=== PATIENT | male | born 1965 | race Caucasian/White ===

== ENCOUNTER 2023-08-04 13:33 | Emergency (ER) | payer BC, SELFPAY ==
[2023-08-04 13:41] VITALS: BP 128/69
--- NOTE | 2023-08-04 14:36 | ED.GENMED ---
History of Present Illness
General
Chief Complaint: Breathing Problem
Time Seen by Provider: 08/04/23 14:36
Travel History
Have you had any contact with someone who has COVID-19?: No
Do you have any symptoms of coronavirus? Fever > 100 degrees, chills, cough, shortness of breath, sore throat, loss of taste or smell, muscle aches, or headache?: No
History of Present Illness
History of Present Illness:
HPI: Patient presents with increasing shortness of breath and left-sided rib/chest pain. He reportedly broke 3 ribs about 2 weeks ago. This happened after he was pulled by his dog down to the ground. He denies any other injury or concerns. He
has had no fevers. He has had no cough. The patient has tried Advil with only minimal improvement.
EXAM:
GENERAL: Well appearing in no distress
CERVICAL SPINE: No midline c-spine tenderness with excellent AROM
HEAD: No evidence of craniofacial trauma
CHEST: There is moderate tenderness to the left posterolateral chest wall, normal heart sounds
LUNGS: Equal lung sounds, no respiratory distress
ABDOMEN: No abdominal tenderness, no peritoneal signs
EXTREMITIES: Normal active range of motion, no tenderness
NEURO: Excellent strength all extremities, appropriate mental status, normal speech/language
TIME OF INITIAL ENCOUNTER: 2:35 PM: I initially evaluated patient
NUMBER AND COMPLEXITY OF PROBLEMS ADDRESSED AT THE ENCOUNTER
� Chronic conditions affecting care: Recent rib fracture, high blood pressure, diabetes, hyperlipidemia
� Acute Exacerbation and/or Progression of Chronic Illness: Subacute worsening of pain related to rib fracture
� Differential Diagnosis includes: Pneumothorax, persistent pain from rib fracture, poorly healing fractures, pneumonia
AMOUNT AND/OR COMPLEXITY OF DATA TO BE REVIEWED AND ANALYZED
� I performed an independent evaluation of and my interpretation is:
EKG: Sinus 65, left axis deviation, no acute ST abnormality, borderline LVH
CT:
X-rays: I personally reviewed x-ray and agree with radiologist interpretation, there are several more displaced fractures than others but there does appear to be fractures through ribs 3 through 9
Laboratory Studies:
Other: The patient was able to pull 1500 mL on incentive spirometer
� Review of other/old records: The patient had upper endoscopy December 2022
� Clinical information was obtained by an independent historian: I spoke to at bedside
� Prescriptions/Medications Considered but not given:
� Further testing considered but not performed:
RISK OF COMPLICATIONS AND/OR MORBIDITY OR MORTALITY OF PATIENT MANAGEMENT
� Social determinants of health affecting care: Lives at home
� Discussion with other providers:
� Escalation of care including admission/observation vs risk of discharge considered: The patient says he broke 3 ribs 12 days ago now with ongoing pain with some degree of shortness of breath. Breath sounds are equal and I have
relatively low suspicion for pneumothorax. Will repeat imaging. Although this happened 12 days ago, since he does appear rather uncomfortable, will try short course of narcotic analgesia. Chest x-ray suggest the possible of pneumonia however the
patient has no cough and is afebrile. Relatively low suspicion for pneumonia however given the fact that he was using abdominal binder with worsening symptoms, along with multiple rib fractures, will place on antibiotics.
Phy Exam
Physical Exam
Physical Exam:
See HPI
Scores
Heart Failure Risk
Heart Failure Risk Score: Not Applicable
Course
Orders/Labs/Results
Orders:
Orders
08/04/23 13:45
EKG [Electrocardiogram (*1)] Urgent
Reason for Study: Chest Pain
EKG- Treatment ONCE
08/04/23 14:42
Oxycodone/Acetaminophen [Percocet 5/325] 1 tablet PO NOW STA
CR Ribs-left 3 Vw W/pa Chest Urgent
Comment:
Reason For Exam: trauma; '3 rib fx's' 12d ago; worse pain/sob
Incentive Spirometry [Rx Incentive Spirometry] [RESP] Urgent
Frequency: q1h while awake
08/04/23 16:13
Amoxicillin [Amoxil] 1,000 mg PO NOW STA
Azithromycin [Zithromax] 500 mg PO NOW STA
Vital Signs
Initial and Last Documented VS:
Initial Vital Signs
Temp Pulse Resp BP Pulse Ox
97.7 F 68 16 128/69 95
08/04/23 13:41 08/04/23 13:41 08/04/23 13:41 08/04/23 13:41 08/04/23 13:41
Last Documented Vital Signs
Temp Pulse Resp BP Pulse Ox
97.7 F 68 16 128/69 95
08/04/23 13:41 08/04/23 13:41 08/04/23 13:41 08/04/23 13:41 08/04/23 13:41
*Critical Care Note
Total Time (30-74mins, 75-104mins- exclusive of procedures): Not Applicable
ED Attending Note
-
Portions of this chart may have been created with voice recognition software.� Occasional wrong word or��sound alike� substitutions may have occurred due to the inherent limitations of voice recognition software.
Discharge Plan
Departure
Patient Disposition: Home (Routine Discharge)
Date of Disposition: 08/04/23
Time of Disposition: 16:08
Patient with high blood pressure during this ER visit?: Yes
Discharge Problem:
Multiple rib fractures
Instructions: Rib Fracture (DC)
Prescriptions:
New
oxycodone-acetaminophen [Percocet] 5-325 mg tablet
1 - 2 tab PO Q6HPRN PRN (Reason: pain) Qty: 14 0RF
amoxicillin 500 mg tablet
1,000 mg PO TID Qty: 21 0RF
azithromycin [Zithromax] 250 mg tablet
250 mg PO DAILY Qty: 4 0RF
Referrals:
Derrick Sawyer MD [Active] - Follow up in 2-3 days
Ed Dangelo CRNP [Family Provider] -
Activity Restrictions/Additional Instructions:
I have given you the contact information for a local neckties painter�Dr. Sawyer. Please call him for follow-up. The chest x-ray showed fractures of the left third through ninth ribs. There was some questionable airspace disease which
could be seen with pneumonia or irritation to the lung. We can try antibiotics. Your oxygen levels are okay. Return here if worse. Take something like MiraLAX to help constipation if you take Percocet. Do not use a binder as this increases the
risk of pneumonia.
Interventions
Interventions:
*Risk Screen - Suicide Last Done: 08/04/23 13:41
*General Assessment Last Done: 08/04/23 13:41
*Neglect/Abuse Screening Last Done: 08/04/23 13:41
ED- Cardiac Assessment Last Done: 08/04/23 15:16
ED- Pulmonary Assessment Last Done: 08/04/23 15:16
[2023-08-04] MEDS: PERCOCET 5/325 1 TABLET PO (14:57)
[2023-08-04] MEDS: ZITHROMAX 500 MG PO (16:26)
[2023-08-04] MEDS: AMOXIL 1000 MG PO (16:26)
== END 2023-08-04 16:49 | disposition home or self-care (01) ==
LOC: EMR 13:33
PROVIDERS: EMERGENCY PHYSICIAN Emergency Medicine; FAMILY PHYSICIAN Nurse Practitioner Family
DX: S22.42XA Multiple fractures of ribs, left side, initial encounter for closed fracture (principal); W18.30XA Fall on same level, unspecified, initial encounter; I10 Essential (primary) hypertension; K57.92 Diverticulitis of intestine, part unspecified, without perforation or abscess without bleeding; E11.9 Type 2 diabetes mellitus without complications; E78.00 Pure hypercholesterolemia, unspecified
CPT/HCPCS: 99283; 71101; 93005

== ENCOUNTER 2023-08-17 16:12 | Inpatient (IN) | payer BC, SELFPAY ==
[2023-08-17] VITALS (29 sets, daily range): BP systolic 86–131; BP diastolic 51–74; BMI 27.5; BMI 26.8
[2023-08-17 14:25] LABS: Mean Corp Hgb Conc. 32.6 g/dL (33.0-37.0); Mean Corpuscular Hgb 33.9 pg (27.0-31.0); Mean Corpuscular Volume 104.2 fL (80.0-94.0); Mean Platelet Volume 9.8 fL (7.4-10.4); Platelet Count 326 10^3/uL (130-400); Red Blood Cell Count 1.68 10^6/uL (4.70-6.10); Red Cell Dist. Width 16.4 % (11.5-14.5)
[2023-08-17] MEDS: PROTONIX 100 IV ×2 (14:34→23:45)
[2023-08-17 14:36] LABS: INR 1.92; PT 21.8 Sec (11.4-14.6)
--- NOTE | 2023-08-17 14:39 | ED.GENMED ---
Addendum entered and electronically signed by Epi Salvador MD 08/17/23 17:03:
EKG sinus tach at 114. No acute changes.
Original Note:
History of Present Illness
General
Chief Complaint: Bowel Problem
Source: patient and family
Exam Limitations: none
Time Seen by Provider: 08/17/23 14:29
Travel History
Have you had any contact with someone who has COVID-19?: No
Do you have any symptoms of coronavirus? Fever > 100 degrees, chills, cough, shortness of breath, sore throat, loss of taste or smell, muscle aches, or headache?: No
History of Present Illness
History of Present Illness:
Patient started with diarrhea 2 to 3 days ago. May have been dark. Started with vomiting overnight. Multiple episodes of vomiting. Coffee ground. Further black tarry stools. Had a near syncopal episode at home. History of EtOH use. Denies
abdominal pain or other complaints
Past History
Past History
ED Past Medical History: HTN, Hypercholesterolemia, NIDDM and Other (Diverticulitis)
ED Past Surgical History: Appendectomy
Social History
Alcohol: Chronic alcoholic
Personal:
Living: with family
Review of Systems
Review of Systems
All Other Systems: Not applicable
Constitutional: Denies fever
Respiratory: Reports no symptoms
Cardiac: Reports no symptoms
Phy Exam
Physical Exam
Physical Exam:
GENERAL: Alert and oriented. Pale. Hypotensive/tachycardic.
EYE: Orbits normal.
NECK: Supple
CARDIAC: Cardiac and regular no murmur
LUNGS: Clear breath sounds,normal
ABDOMEN: Soft, without focal tenderness or distention. Rectal with maroon stool clearly test positive
NEUROLOGICAL: Alert and oriented , grossly non-focal
SKIN: Warm and dry, pale
MUSCULOSKELETAL: No edema,no deformity.Good color
PSYCH: Normal and appropriate interaction.
Course
Orders/Labs/Results
Orders:
Orders
08/17/23 14:14
EKG [Electrocardiogram (*1)] Urgent
Reason for Study: Vertigo / Dizzy
08/17/23 14:15
EKG- Treatment ONCE
Prothrombin Time Urgent
08/17/23 14:16
Type+Screen Urgent
Complete Blood Count/With Diff Urgent
Comprehensive Metabolic Panel Urgent
Manual Differential Urgent
08/17/23 14:28
Pantoprazole 80 mg/100 ml Nss [Protonix] 80 mg in 100 ml IV NOW
08/17/23 14:29
* Blood Bank Products Urgent
Blood Bank Products: *Packed RBC Leuko(PRBC's)
Quantity: 1
Transfuse Today: Yes
Is product needed for scheduled surgery?: Yes
Reason: Bleeding
Patient will require pre-treatment for transfusion:: No
08/17/23 14:30
CT Abd/pelvis Angio W/wo Iv Urgent
Comment:
Reason For Exam: Severe GI bleed
08/17/23 15:00
* Blood Bank Products Urgent
Blood Bank Products: *Packed RBC Leuko(PRBC's)
Quantity: 2
Transfuse Today: Yes
Reason: Bleeding
08/17/23 15:45
Blood Culture Q30M
LORI Source: Blood/Venous
Specimen Description:
08/17/23 15:51
Admit/Transfer Patient As Directed
Co-Sign Provider:
Level of Care: Inpatient admission
Assign to:: ICU
Physician / Group: Hospitalist
Diagnosis: GI bleed
Reason for Hospitalization: GI bleed
Expected length of stay greater than two midnights?: Yes
ELOS- Estimated Length of Stay in days: 4
I certify the patient meets the requirements for IP care: Yes
08/17/23 15:52
Code Status As Directed
Resuscitation Status: Full Code
08/17/23 16:15
Blood Culture Q30M
LORI Source: Blood/Venous
Specimen Description:
Abnormal Lab Results
08/17/23 08/17/23
14:15 14:16
WBC 32.0 H 10^3/uL
(4.8-10.8)
RBC 1.68 L 10^6/uL
(4.70-6.10)
Hgb 5.7 L* g/dL
(13.0-18.0)
Hct 17.5 L* %
(39.0-52.0)
MCV 104.2 H fL
(80.0-94.0)
MCH 33.9 H pg
(27.0-31.0)
MCHC 32.6 L g/dL
(33.0-37.0)
RDW 16.4 H %
(11.5-14.5)
Abs Neuts (Manual) 25.6 H 10^3/uL
(1.4-6.5)
Band Neutrophils 5 H %
(0-3)
Lymphocytes (Manual) 12 L %
(20-51)
PT 21.8 H Sec
(11.4-14.6)
Sodium 131 L mmol/L
(135-145)
Carbon Dioxide 9 L* mmol/L
(22-30)
BUN 28 H mg/dl
(9-20)
Glucose 267 H mg/dl
(70-99)
Total Bilirubin 1.6 H mg/dl
(0.2-1.3)
Total Protein 5.5 L g/dl
(6.3-8.2)
Albumin 2.6 L g/dl
(3.5-5.0)
Crossmatch IS Only See Detail
08/17/23 14:16
08/17/23 14:16
Vital Signs
Initial and Last Documented VS:
Initial Vital Signs
Temp Pulse Resp BP Pulse Ox
97.8 F 124 16 90/68 100
08/17/23 14:06 08/17/23 14:06 08/17/23 14:06 08/17/23 14:06 08/17/23 14:06
Last Documented Vital Signs
Temp Pulse Resp BP Pulse Ox
97.7 F 111 18 99/59 98
08/17/23 16:12 08/17/23 16:12 08/17/23 16:12 08/17/23 16:12 08/17/23 16:12
MDM/Problems Addressed
Differential Diagnosis Includes:
1510...Severe GI bleed with shock. Blood was ordered immediately. Protonix drip ordered. 2 IVs. GI was consulted immediately. Sent immediately to CT. [place] his BUN and creatinine likely would be stable. Awaiting for this report. 2 more units
of blood ordered after hemoglobin return. Patient's blood pressure is improved and he appears improved with some fluids.
*Radiology
Radiology exam reviewed: radiology read reviewed (Duodenitis and suspected ulceration no evidence for acute bleeding large amount of blood throughout the GI tract. Cirrhosis. Splenomegaly cholelithiasis. Mild pneumonitis right lung base)
*Pulse Oximetry
Patient hypoxic: no
*Critical Care Note
Total Time (30-74mins, 75-104mins- exclusive of procedures): 45
Data Reviewed
Review of Other/Old Records Reveals: Labs and Testing
Update Note
Update Note:
9335... Immediately contacted GI. Updated them on his condition. Hypotensive tachycardic maroon stool clearly testing positive. Patient is pale. Consent for blood. Blood ordered. Protonix drip ordered. Stat CT angio. Previous labs have all
been stable from a renal standpoint.
1615... Currently receiving blood. Significant leukocytosis. Cultures ordered. Will let hospitalist know about possible antibiotic coverage for pneumonitis
ED Attending Note
-
Portions of this chart may have been created with voice recognition software.� Occasional wrong word or��sound alike� substitutions may have occurred due to the inherent limitations of voice recognition software.
Discharge Plan
Departure
Patient Disposition: Admit
Date of Disposition: 08/17/23
Time of Disposition: 15:09
Presentation/result/management discussed w/ accepting MD/DO: Gastroenterology
Discharge Problem:
Severe GI bleed, Cardiovascular shock
Interventions
Interventions:
*Risk Screen - Suicide Last Done: 08/17/23 14:09
*General Assessment Last Done: 08/17/23 14:08
*Neglect/Abuse Screening Last Done: 08/17/23 14:09
*ED COVID-19 Vaccine History Last Done: 08/17/23 14:08
DX-Wtcrqm-Bbjoxvhzwi Assessment Last Done: 08/17/23 14:09
--- NOTE | 2023-08-17 14:40 | PHANOTE ---
med rec note- patient spouse informed me that the patient not good with taking his medication every day, also stated that he might not have taking them in weeks. spouse stated that nothing was taking today besides water.
[2023-08-17 14:46] LABS: ALT (SGPT) 37 U/L (0-50); AST (SGOT) 52 U/L (17-59); Albumin 2.6 g/dl (3.5-5.0); Alkaline Phosphatase 109 U/L (38-126); Blood Urea Nitrogen 28 mg/dl (9-20); Calcium 8.7 mg/dl (8.4-10.2); Carbon Dioxide 9 mmol/L (22-30); Chloride 101 mmol/L (98-107); Estimated Creatinine Clearance 78 ml/min; Glucose 267 mg/dl (70-99); Potassium 3.9 mmol/L (3.5-5.1); Sodium 131 mmol/L (135-145); Total Bilirubin 1.6 mg/dl (0.2-1.3); Total Protein 5.5 g/dl (6.3-8.2); eGFR > 60.00
[2023-08-17 14:59] LABS: Hematocrit 17.5 % (39.0-52.0); Hemoglobin 5.7 g/dL (13.0-18.0)
[2023-08-17 15:26] LABS: Absolute Neutrophils -Man Diff 25.6 10^3/uL (1.4-6.5); Band Neutrophils 5 % (0-3); Lymphocytes 12 % (20-51); Metamyelocytes 1 % (-); Monocytes 6 % (2-9); Myelocytes 1 % (-); Platelets Checked Yes; Segmented Neutrophils 75 % (42-75)
[2023-08-17 15:27] LABS: Anisocytosis 2+; Macrocytosis 2+; Microcytosis 1+; Normal RBC Morphology No; Polychromasia Slight; Total Cells Counted 100
--- NOTE | 2023-08-17 15:36 | HPS.HSE ---
Family Physician
-
Family Physician: Skylar Helton
Chief Complaint
-
Vomiting and diarrhea
History of Present Illness
58 man started with dark diarrhea 2 to 3 days ago. He then Started with vomiting overnight and had Multiple episodes of vomiting, Coffee ground in nature. He also had Further black tarry stools, and a near syncopal episode at home. He has a
History of EtOH use, though he denies current heavy drinking. He Denies abdominal pain or other complaints. He has not had GI bleed before. He has not had alcohol WD before. He had rib fractures recently and has been taking ibuprofen daily. No
pain or distress during my exam.
Medical History
Past Medical History
Past Medical History: Reports Other
Additional Past Medical History:
Essential HTN,
Hypercholesterolemia,
NIDDM
Diverticulitis
Appendectomy
Past Surgical History: Reports Other
Additional Past Surgical History:
See above
Social History
Tobacco: Smoker
Alcohol: Daily
Drug: None
Personal:
Living: With Family
Employment: Employed
Family History
Family History: Not pertinent
Allergies / Home Medications
Allergies reflects when Allergies were last updated in [facility].
Home Medications with original date entered in [facility]
Allergy/Medication List:
Allergies
Allergy/AdvReac Type Severity Reaction Status Date / Time
No Known Allergies Allergy Verified 08/04/23 13:40
Home Medications
dorzolamide 22.3 mg-timolol 6.8 mg/mL eye drops 1 drp BOTH EYES BID 08/17/23
empagliflozin 25 mg tablet (Jardiance) 25 mg PO DAILY 08/17/23
fluoxetine 40 mg capsule (Prozac) 40 mg PO DAILY 08/17/23
omega 9-zrr-pwb-fish oil 1,000 mg (120 mg-180 mg) capsule (Fish Oil) 1 cap PO DAILY 08/17/23
oxycodone-acetaminophen 5 mg-325 mg tablet (Percocet) 1 - 2 tab PO Q6HPRN PRN severe pain 08/17/23
rosuvastatin 10 mg tablet (Crestor) 10 mg PO DAILY 08/17/23
Review of Systems
-
History Source: Patient
A 12 point ROS was completed and negative except as noted: Yes
Physical Exam
Vital Signs
Vital Signs
Temp Pulse Resp BP Pulse Ox
97.8 F 109 14 131/51 100
08/17/23 14:06 08/17/23 15:00 08/17/23 15:00 08/17/23 15:00 08/17/23 15:00
Physical Exam
General: Well Developed, Well Nourished, No Apparent Distress, Comfortable and Other (very pale)
HEENT: NormoCephalic, Moist mucous membranes and No Ptosis
Respiratory: Clear
Cardiac: S1/S2 and Murmur
GI: Soft, Non Tender and Non Distended
Musculoskeletal: No Clubbing, No Cyanosis and No Edema
Skin: Warm and Dry; No Rash
Neuro: Awake, Alert, Oriented and AO x 3
Psych: Calm
Laboratory Results
-
08/17/23 14:16
08/17/23 14:16
Laboratory Results
PT 21.8 Sec (11.4-14.6) H 08/17/23 14:15
INR 1.92 08/17/23 14:15
Total Bilirubin 1.6 mg/dl (0.2-1.3) H 08/17/23 14:16
AST 52 U/L (17-59) 08/17/23 14:16
ALT 37 U/L (0-50) 08/17/23 14:16
Alkaline Phosphatase 109 U/L (38-126) 08/17/23 14:16
Data Reviewed
-
Lab Data: Labs Reviewed by me
Impression/Plan
-
IMPRESSION:
58 man with GI bleed, likely upper. Recent h/o taking NSAIDS. Important findings:
WBC 32.0
H/H 5.7/17.5
MCV 104.2
Na 131
CO2 9
BUN/Creat 28.1
Glucose 267
PLAN:
1. GI bleed, likely upper, likely from NSAIDs
NPO
Protonix gtt
GI consult (called by ED)
ICU admit
2. Acute blood loss anemia (likely from GIB)
Blood Tx (3 units ordered)
Goal is crit > 21
h/h Q6
3. Hyponatremia, likely hypovolemic hyponatremia
IV saline when not getting blood
Recheck in am
4. CO2 of 9
Replete blood and volume
Recheck in am
5. BUN/Creat > 20 (16/06.1), likely combo of UGIB and low volume
Replete volume
Recheck in am
6. WBC of 32.0, stress reaction vs infection
Cultures drawn in ED, hold abx for now
Follow cultures
Recheck in am after blood and volume repleted
7. Glucose of 326. Hold PO dm meds
Insulin as needed
8. Smoking - patch requested
9. ETOH - not currently drinking, and has never had WD. Monitor for now.
10.Essential HTN - ok for now, hold BP meds. Monitor.
VCD for DVTp (avoid heparin)
Full code
--- NOTE | 2023-08-17 18:26 | PTCARENOTE ---
Updated assessment, nursing data base, and unit orientation. Follow up plan of cares, admission orders, and icu follow up plan of cares. Received patient from ED protonix drip infusing, first unit prbc completed and second unit prbc started in Icu.
GI team at bedside to update history and previous/recent scope. Will follow up [facility] plan of cares and orders.
--- NOTE | 2023-08-17 18:39 | CON.GI ---
Consultation
-
Date/Time Consultation Requested: 08/17/23 2:30 pm
Date/Time Consultation Performed: 08/17/23 6pm
Requesting Provider: [place]
Performing Provider: Danny
Reason for Consultation: GI bleed
Medical History
Chief Complaint / HPI
Chief Complaint: GI bleed
History of Present Illness:
This patient is a 58-year-old man who has a history of GERD hypertension, dpw-cyikcob-ofxgrzqlg diabetes and prior history of alcohol abuse. He was seen in our office 1 year ago and had an upper endoscopy at that time for GERD which showed a
submucosal lesion in his duodenum with an ulcer. He was scheduled for an endoscopic ultrasound to evaluate this lesion but did not show up due to work related issues. He never rescheduled. He did have a colonoscopy with some polyps. He states
that he fractured his ribs after having a fall while walking his dog. He was put on multiple NSAIDs as well as OxyContin. He did notice over the last 3 days having black stool and did have some coffee-ground emesis which precipitated him to come
to the emergency room. In the emergency room his hemoglobin was 5.7. He states that he has not had any more melena since this a.m. He has been in alcohol rehab approximately a year ago but did have a few mishaps with alcohol since then. He does
not have a history of cirrhosis that he knew of but imaging that I reviewed did show hepatic cirrhosis and splenomegaly. It did also show this thickened area of the duodenum and there was blood in the GI tract but no active bleeding.
Past Medical History
Past Medical History: HTN, Hypercholesterolemia, NIDDM and Other (diverticulitis)
Past Surgical History: Appendectomy
Social History
Tobacco: Smoker
Alcohol: Chronic Alcoholic (did stop 1 yr ago but has had a few relapses)
Living: With Family
Employment: Employed
Family History
Family History: Reviewed & Not Pertinent
Allergies / Home Medications
Allergy/AdvReac Type Severity Reaction Status Date / Time
No Known Allergies Allergy Verified 08/04/23 13:40
�Medication �Instructions �Recorded
dorzolamide 22.3 mg-timolol 6.8 1 drp BOTH EYES BID 08/17/23
mg/mL eye drops
empagliflozin 25 mg tablet 25 mg PO DAILY 08/17/23
(Jardiance)
fluoxetine 40 mg capsule (Prozac) 40 mg PO DAILY 08/17/23
omega 6-flq-lgx-fish oil 1,000 mg 1 cap PO DAILY 08/17/23
(120 mg-180 mg) capsule (Fish Oil)
oxycodone-acetaminophen 5 mg-325 1 - 2 tab PO Q6HPRN PRN severe pain 08/17/23
mg tablet (Percocet)
rosuvastatin 10 mg tablet (Crestor) 10 mg PO DAILY 08/17/23
Review of Systems
-
All other systems: A 12 pt ROS was Negative except as stated above in HPI
Vital Signs
Temp Pulse Resp BP Pulse Ox
98.7 F 102 18 109/67 98
08/17/23 18:08 08/17/23 18:08 08/17/23 18:08 08/17/23 18:08 08/17/23 18:11
Physical Exam
Exam
General: No Apparent Distress
HEENT: Anicteric
Respiratory: Wheezes (bilateral, worse on right side)
Cardiac: S1/S2
GI: Soft, Non Tender and Normal Bowel Sounds
Neuro: Awake
Psych: Calm
Results
WBC 32.0 10^3/uL (4.8-10.8) H 08/17/23 14:16
Hgb 5.7 g/dL (13.0-18.0) L* 08/17/23 14:16
Hct 17.5 % (39.0-52.0) L* 08/17/23 14:16
MCV 104.2 fL (80.0-94.0) H 08/17/23 14:16
Plt Count 326 10^3/uL (130-400) 08/17/23 14:16
Absolute Neuts (auto) Not Reportable 08/17/23 14:16
PT 21.8 Sec (11.4-14.6) H 08/17/23 14:15
INR 1.92 08/17/23 14:15
Sodium 131 mmol/L (135-145) L 08/17/23 14:16
Potassium 3.9 mmol/L (3.5-5.1) 08/17/23 14:16
Chloride 101 mmol/L (98-107) 08/17/23 14:16
Carbon Dioxide 9 mmol/L (22-30) L* 08/17/23 14:16
BUN 28 mg/dl (9-20) H 08/17/23 14:16
Creatinine 1.1 mg/dL (0.7-1.3) 08/17/23 14:16
Calcium 8.7 mg/dl (8.4-10.2) 08/17/23 14:16
Total Bilirubin 1.6 mg/dl (0.2-1.3) H 08/17/23 14:16
AST 52 U/L (17-59) 08/17/23 14:16
ALT 37 U/L (0-50) 08/17/23 14:16
Alkaline Phosphatase 109 U/L (38-126) 08/17/23 14:16
Assessment / Plan
-
This patient is a 58-year-old male with a history of alcohol abuse, newly diagnosed cirrhosis, submucosal lesion of the small bowel with known DU who is lost to follow-up. He does come with an upper GI bleed after taking NSAIDs for rib injury. I
do think that it is clear by imaging and by history that the area of bleeding is the small bowel lesion which is submucosal and has ulceration. I do not have images but I do worry that it could potentially also be in a variant varix. He currently
is not bleeding but is very under resuscitated. He currently is received just 1 unit of blood and is on his second unit. For now I would do the following;
1. will need 3-4 units of blood, will need to follow hemodynamics to assess this
2. would start octreotide ggt although less likely lesion is a varix
3. PPI ggt
4. follow hgb
5. follow lfts, pt, inr, check hep panel
6. avoid nsaids
7. will need egd but timing to be determined by clinical status taking into consideration lung exam
8. alcohol abstinence
Data Reviewed
-
CT Scan: Image Personally Visualized and interpreted
-
-
Thank you for consultation and allowing me to participate in the patient's care. Please call the manager compensation GI physician during the after hours with any questions or concerns.
[2023-08-17] MEDS: NSS 1000 IV (20:08)
[2023-08-17] MEDS: COSOPT EYE DROPS 1 DROP BOTH EYES (20:09)
[2023-08-17] MEDS: SANDOSTATIN 500.600000000000023 MCG IV (20:09)
[2023-08-17 20:15] LABS: Glucose - Point of Care 146 mg/dl (70-99)
--- NOTE | 2023-08-17 20:49 | PTCARENOTE ---
Pt received at 19:00. 2nd unit PRBCs now complete and 3rd unit started. Pt Ox3, pleasant. SR-Sinus tach, palpable pulses. RA, pulse ox 95%. Breath sounds diminished t/o. Abdomen rounded, tender, hyperactive bowel sounds. Intermittent nausea w/ an
episode of coffee ground emesis--450ml. Voided in urinal, jany urine. Pt at bedside, updated. Safe environment maintained, call [place] within reach.
[2023-08-17] MEDS: ZOFRAN 4 MG IV (22:10)
[2023-08-18] VITALS (59 sets, daily range): BP systolic 68–143; BP diastolic 35–81; BMI 27.0
[2023-08-18 00:07] LABS: Glucose - Point of Care 159 mg/dl (70-99)
[2023-08-18 00:09] LABS: Hematocrit 23.2 % (39.0-52.0)
[2023-08-18 00:10] LABS: Hemoglobin 8.2 g/dL (13.0-18.0)
[2023-08-18 00:19] LABS: INR 1.92; PT 21.8 Sec (11.4-14.6)
[2023-08-18 00:20] LABS: Fibrinogen 208 MG/DL (199-459)
[2023-08-18 00:25] LABS: Blood Urea Nitrogen 34 mg/dl (9-20); Calcium 8.1 mg/dl (8.4-10.2); Carbon Dioxide 21 mmol/L (22-30); Chloride 107 mmol/L (98-107); Estimated Creatinine Clearance 87 ml/min; Glucose 149 mg/dl (70-99); Potassium 4.9 mmol/L (3.5-5.1); Sodium 132 mmol/L (135-145); eGFR > 60.00
--- NOTE | 2023-08-18 01:14 | PTCARENOTE ---
Pt had large loose bm, maroon with clots. Otherwise assessment unchanged. Continues with IVF, octreotide, and protonix. 3rd unit PRBCs completed, hgb went from 5.7 to 8.2. Safe environment maintained, plan of care ongoing.
[2023-08-18] MEDS: CALCIUM GLUCONATE 100 IV (01:27)
[2023-08-18] MEDS: NSS 1000 IV (03:41)
[2023-08-18 04:06] LABS: Hemoglobin 7.6 g/dL (13.0-18.0); Mean Corp Hgb Conc. 34.5 g/dL (33.0-37.0); Mean Corpuscular Hgb 32.5 pg (27.0-31.0); Mean Platelet Volume 9.7 fL (7.4-10.4); Platelet Count 146 10^3/uL (130-400); Red Blood Cell Count 2.34 10^6/uL (4.70-6.10); Red Cell Dist. Width 15.5 % (11.5-14.5); White Blood Cell Count 21.7 10^3/uL (4.8-10.8)
[2023-08-18 04:28] LABS: Blood Urea Nitrogen 36 mg/dl (9-20); Calcium 8.4 mg/dl (8.4-10.2); Carbon Dioxide 23 mmol/L (22-30); Chloride 107 mmol/L (98-107); Estimated Creatinine Clearance 97 ml/min; Glucose 130 mg/dl (70-99); Potassium 4.7 mmol/L (3.5-5.1); Sodium 133 mmol/L (135-145); eGFR > 60.00
[2023-08-18 06:09] LABS: Glucose - Point of Care 152 mg/dl (70-99)
[2023-08-18] MEDS: PROTONIX 100 IV ×2 (07:44→19:24)
[2023-08-18] MEDS: SANDOSTATIN 500.600000000000023 MCG IV ×2 (07:44→19:23)
[2023-08-18 07:45] LABS: Glucose - Point of Care 138 mg/dl (70-99)
[2023-08-18] MEDS: COSOPT EYE DROPS 1 DROP BOTH EYES ×2 (07:45→21:06)
--- NOTE | 2023-08-18 08:31 | W.PN.GI.CBS2 ---
Today's Communication / Plan
-
EGD tomorrow, earlier if indicated
Assessment / Plan
-
This patient is a 58-year-old male with a history of alcohol abuse, newly diagnosed cirrhosis, submucosal lesion of the small bowel with known DU who is lost to follow-up. He does come with an upper GI bleed after taking NSAIDs for rib injury. I
do think that it is clear by imaging and by history that the area of bleeding is the small bowel lesion which is submucosal and has ulceration. I do not have images but I do worry that it could potentially also be in a variant varix. He currently
is not bleeding but may still need another unit of blood as he is still catching up. For now I would do the following;
1. Likely will need another unit of blood
2. continue octreotide ggt although less likely lesion is a varix
3. PPI ggt
4. follow hgb
5. INR stable but elevated
6. avoid nsaids
7. EGD in am, earlier if starts to rebleed
8. alcohol abstinence
9. hep panel pending will add afp
Subjective
Subjective
Date of Service: August 18, 2023
Pt received 3 units of blood. Feels better, no bleeding since admission. No abdominal pain. Breathing is better
Objective
Data Reviewed
Laboratory Data:
Laboratory Results
08/18/23 03:39
Laboratory Results
PT 21.8 Sec (11.4-14.6) H 08/18/23 00:03
INR 1.92 08/18/23 00:03
APTT 37.0 Sec (23.4-35.0) H 08/18/23 00:03
Total Bilirubin 1.6 mg/dl (0.2-1.3) H 08/17/23 14:16
AST 52 U/L (17-59) 08/17/23 14:16
ALT 37 U/L (0-50) 08/17/23 14:16
Alkaline Phosphatase 109 U/L (38-126) 08/17/23 14:16
Vital Signs and I&O:
Vital Signs
Temp Pulse Resp BP Pulse Ox
98.1 F 97 11 94/71 95
08/18/23 07:42 08/17/23 19:45 08/17/23 19:45 08/17/23 19:45 08/17/23 21:34
I&O
08/17/23 08/18/23 08/19/23
06:59 06:59 06:59
Intake Total 3338.7 / 3540.4 201.7 / 201.7
Output Total 1050 / 1050
Balance 2288.7 / 2490.4 201.7 / 201.7
Physical Exam
Physical Exam
GI: Soft, Non Distended and Non Tender
Neuro: Non Focal
--- NOTE | 2023-08-18 08:40 | CON.INTV ---
Consultation
Consultation Request
Date/Time Consultation Requested: 08/17/2023 - 1922
Date/Time Consultation Performed: 08/18/2023 - 834
Requesting Provider: MCKAY Martinez
Performing Provider: Prashanth Ghosh MD
Reason for Consultation: GIB
Medical History
-
Chief Complaint: Black stools/vomiting
History of Present Illness:
58-year-old male with a past medical history of alcohol use disorder, tobacco use disorder, history of diverticulitis, DM type II and hypertension who was BIBEMS for vomiting/diarrhea X 3 days and presyncope. Patient said he had boris blood in the
stool with dark vomitus. He was given Zofran and fentanyl by EMS. Initial vitals showed he was afebrile to 97.8 �F, tachycardic to 124 bpm, breathing at 16 breaths/min, hypotensive to 90/68 and saturating 100% on room air. He was anemic to 5.7
and leukocytosis to 32. Platelets 326. Initial INR 1.92. Hyponatremic to 131 and he was severely acidotic with a serum bicarbonate level of 9. BUN elevated 28 and creatinine normal at 1.1. Glucose 267, total bilirubin 1.6. Albumin 2.6. Blood
cultures were collected. CTA of the abdomen/pelvis with/without contrast showed suspected ulceration of the proximal duodenum with wall thickening and fat stranding. Also showed hepatic cirrhosis with splenomegaly, cholelithiasis with gallbladder
wall thickening and severe aortobiiliac calcified atherosclerosis with diffuse urinary bladder wall thickening and colonic diverticulosis. Patient denies having a GI bleed in the past. He says that he has been drinking alcohol this past weekend
with angelatas. He does drink chronically and understands that he needs to stop. Protonix drip was started in the ER and GI was consulted. Multiple PRBC units were prepared for transfusion, and patient was transferred to the ICU for further
care. Technical Writing Lead/Mgr service is now consulted for additional management/recommendations.
When I saw the patient this morning he was laying in bed in no acute distress. He is currently on an octreotide drip as well as PPI drip. Current vitals are: BP 108/58, heart rate 77, SpO2 96% on room air. He is getting another 1 unit PRBC this
morning due to an Hb that has dropped from 7.6-7.1 today. He has received 3 units prior to this morning. He denies any abdominal pain, although he is thirsty. She denies chest pain, headache, shortness of breath, fevers or chills.
PMHx: Hepatic cirrhosis due to alcohol abuse, hypertension, hypercholesterolemia, DM type II, history diverticulitis, tobacco use disorder
PSHx: Appendectomy
Past Medical History
Past Medical History: Other (Above as per HPI)
Past Surgical History: Other (Above as per HPI)
Social History
Tobacco: Smoker
Alcohol: Chronic Alcoholic
Drug: None
Personal:
Living: With Family
Employment: Employed
Family History
Family History: Reviewed & Not Pertinent
Allergies / Home Medications
Allergies
Allergy/AdvReac Type Severity Reaction Status Date / Time
No Known Allergies Allergy Verified 08/04/23 13:40
Home Medications
�Medication �Instructions �Recorded �Confirmed �Last Taken �Type
dorzolamide 22.3 mg-timolol 6.8 1 drp BOTH EYES BID 08/17/23 08/17/23 Unknown History
mg/mL eye drops
empagliflozin 25 mg tablet 25 mg PO DAILY 08/17/23 08/17/23 Unknown History
(Jardiance)
fluoxetine 40 mg capsule (Prozac) 40 mg PO DAILY 08/17/23 08/17/23 Unknown History
omega 2-udp-xbg-fish oil 1,000 mg 1 cap PO DAILY 08/17/23 08/17/23 Unknown History
(120 mg-180 mg) capsule (Fish Oil)
oxycodone-acetaminophen 5 mg-325 1 - 2 tab PO Q6HPRN PRN severe pain 08/17/23 08/17/23 Unknown History
mg tablet (Percocet)
rosuvastatin 10 mg tablet (Crestor) 10 mg PO DAILY 08/17/23 08/17/23 Unknown History
Review of Systems
-
History Source: Patient
All other systems: Negative unless noted (12 point ROS performed and is negative unless mentioned above.)
Vitals / Labs / Diagnostic Testing
Vital Signs
Temp Pulse Resp BP Pulse Ox
98.1 F 97 11 94/71 95
08/18/23 07:42 08/17/23 19:45 08/17/23 19:45 08/17/23 19:45 08/17/23 21:34
Lab Data
08/18/23 03:39
Laboratory Results
08/17/23 08/18/23
14:15 00:03
PT 21.8 H 21.8 H
INR 1.92 1.92
APTT 37.0 H
Diagnostic Testing:
Physical Exam
-
HEENT: Normocephalic and Anicteric
Cardiovascular: S1/S2 and Peripheral Edema (Negative)
Respiratory: Wheeze (negative), Rales (negative) and Rhonchi (negative)
GI: Soft, Distended, Non Tender and Normal Bowel Sounds
Neurology: Awake, Alert and Oriented
Skin: Warm and Dry
General: Comfortable and Chills (negative)
Assessment
-
Assessment: 58-year-old male with a PMHx of alcohol use disorder, tobacco use disorder, history of diverticulitis, DM type II and hypertension who was BIBEMS for vomiting/diarrhea X 3 days and presyncope. Patient says that he has been having very
dark/black stools for the last few days and almost passed out at home. He did state that he fell several weeks ago after walking his dogs and fell onto the left side of his ribs. He came to the ER that day and on 08/04/2023, rib/chest x-ray showed
displaced lateral left third through ninth rib fractures. He has been taking pain medications with NSAIDs recently. He also has been drinking alcohol. CTA abdomen/pelvis showed hepatic cirrhosis with splenomegaly, and duodenitis with suspected
ulceration at the proximal duodenum with wall thickening and fat stranding. Patient started on PPI drip, and gastroenterology was consulted. Octreotide drip was then started, multiple PRBC transfusions were initiated and he was transferred to the
ICU for admission. Technical Writing Lead/Mgr service now consulted for additional management/recommendations.
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
Impression:
#Upper gastrointestinal hemorrhage due to suspected duodenal PUD with ulceration in setting of recent NSAID use and alcoholic cirrhosis with possible varices
#Acute blood loss anemia
#Coagulopathy with increased INR
#Hyponatremia - this suspected to be due to beer potomania in the setting of cirrhosis with reduced oncotic pressure
#Multifocal CAP with patchy opacities involving RML, lingula and RLL
#Hyperbilirubinemia - likely due to cirrhosis
#Severe atherosclerosis involving aortobiiliac arteries
#Recent fall with mildly displaced lateral left third through ninth rib fractures
#DM type II
#Alcohol abuse
#Tobacco use disorder
Plan:
- Large bore IV x2
- PPI gtt and octreotide gtt
- IVF with LR at 100mL/hr
- GI on board --> patient needs to be transfused to get Hb >7-8g/dL given he is actively bleeding, and he will obtain EGD tomorrow
- Goal INR <1.8 --> I will give vitamin K to help normalize his INR level
- NPO
- Check viral hepatitis panel
- Considering he has cirrhosis with possible upper GI bleed, I will start ceftriaxone. He also potentially aspirated with RLL patchy opacities seen. If leukocytosis worsens or he spikes fever then would add anaerobic coverage. I will cover for
CAP for now and add azithro in addition to the rocephin.
- Follow-up blood cultures, and check urine antigens for Legionella/strep pneumonia, and check sputum culture
- Start thaimine, folate and MVN
- MSAS with prn ativan
- Strict alcohol abstinence going forward; he should speak to [facility] prior to discharge
- Nicotine patch
- Maintain MAP>65
- Goal BG 140-180mg/dL
- He ultimately should obtain repeat CT chest vs CXR in 6-8 weeks to assess for resolution of his PNA
- Replete electrolytes with K>4, Mg>2
- stress ulcer ppx: PPI gtt
- DVT ppx: SCDs for now
Critical care statement: A total of 40 minutes of critical care time was provided for this patient today. This includes management of unstable vital signs, evaluation of the patient at bedside, reviewing the patient's pertinent medical records
including radiographs, microbiology, laboratory evaluations, and discussion with primary team, consultants, pharmacy, nutrition, physical therapy, case management, charge nurse, critical care nursing, and respiratory therapy.
Data:
CTA Abd/Pelvis with/without IV contrast 08-17-2023:
1. Duodenitis and suspected ulceration of the proximal duodenum with wall thickening and inflammatory fat stranding. This likely accounts for the site of gastrointestinal bleeding, although no CTA evidence for active arterial bleeding during this
exam. Large amount of blood products throughout the gastrointestinal tract, as above.
2. Hepatic cirrhosis.
3. Splenomegaly and multiple small low-attenuation splenic lesions, potentially siderotic nodules in the setting of cirrhosis although other infiltrative processes are not excluded.
4. Cholelithiasis.
5. Gallbladder wall thickening is favored to be reactive from the adjacent duodenal inflammation.
6. Severe aortobiiliac calcified atherosclerosis.
7. Diffuse urinary bladder wall thickening for which correlation with a urinalysis is recommended.
8. Colonic diverticulosis.
9. Mild pneumonitis in the right lower lobe.
Ribs with chest XR 08-04-2023:
1. Mildly displaced lateral left third through ninth rib fractures.
2. Patchy bilateral airspace disease suspicious for pneumonia/interstitial pneumonitis.
[2023-08-18] MEDS: LR 1000 IV ×2 (08:59→19:23)
[2023-08-18] MEDS: NSS IV (09:01)
[2023-08-18 09:18] LABS: Hemoglobin 7.1 g/dL (13.0-18.0)
--- NOTE | 2023-08-18 09:36 | CM ---
Addendum entered by Vadim Esposito 08/18/23 14:17:
CM consulted to assist pt with substance abusee resources and treatment options. Pt expressed his agreement to meet with [facility]. A referral to [facility] made, spoke to [facility]S Osmin and he will meet with pt today to provide with substance abuse
recourses and to discuss alcohol related treatment program options.
Original Note:
CM following re: discharge planning.
Reviewed pt's chart, met with pt.
Pt is a 58 year old male, admitted with primary dx of upper GI bleed.
Pt reports he lives with spouse in a condo, no steps, has 2 supportive daughters. 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 pt reports he uses a cane. Pt expressed his desire to return back home at discharge.
PCP: Juliann Dangelo
Pharmacy: [facility] in [facility].
D/C plan: home with anticipated no needs. Family to transport at discharge.
CM will follow with discharge plan updates as hospitalization progresses
[2023-08-18 09:38] LABS: Hematocrit 20.5 % (39.0-52.0)
--- NOTE | 2023-08-18 09:51 | PTCARENOTE ---
report received, assessments per work list. patient denies pain, alert and oriented. mildly anxious. bed alarm maintained due to fall risk. lungs clear. generalized anasarca. abdomen soft. voiding in urinal. call menchaca in reach. labs sent. hgb
reported to hospitalist via tiger text
--- NOTE | 2023-08-18 09:58 | PTCARENOTE ---
Addendum entered by Daisy Miller RN 08/18/23 10:12:
prior shift vitals captured, unable to verify accuracy
Original Note:
patient had 100ml liquid burgundy black stool, hospitalist, GI updated. orders pending
--- NOTE | 2023-08-18 11:11 | PTCARENOTE ---
blood pressure 78 systolic, unit prbc initiated. GI, hospitalist at bedside, updated
[2023-08-18 11:40] LABS: Glycohemoglobin (HgbA1c) 5.2 % (4.0-5.6)
[2023-08-18 12:04] LABS: Glucose - Point of Care 152 mg/dl (70-99)
[2023-08-18] MEDS: NOVOLOG FLEXPEN-LOW RESISTANCE 1 UNITS SC (12:42)
--- NOTE | 2023-08-18 12:45 | PTCARENOTE ---
reassessed. unit PRBC transfusing without signs reaction.
--- NOTE | 2023-08-18 12:47 | W.PN.HOSP.TC ---
Today's Communication/Plan
-
Transfused 2 units of PRBC
Switch to LR
Monitor blood pressure
Trend H&H
Endoscopy tomorrow tentative or sooner if needed
Assessment / Plan
Assessment / Plan
GI bleed, likely upper, likely from NSAIDs
Continue PPI drip
Starting octreotide drip
Continue with IV fluids
2 large-bore IVs at all times
Gastroenterology consult
Plan for endoscopy tomorrow or earlier if needed
Service electrical test engineer consulted
Start pressors if with hypotension
Plan H&H
CT abd/pelvis with Duodenitis and suspected ulceration of the proximal duodenum with wall thickening and inflammatory fat stranding. This likely accounts for the site of gastrointestinal bleeding, although no CTA evidence for active arterial
bleeding during this exam. Large amount of blood products throughout the gastrointestinal tract, as above.
Acute blood loss anemia (likely from GIB)
Hemoglobin 7.1' additional points of PRBC
Repeat H&H after transfusion
Transfuse aggressively
Hyponatremia, likely hypovolemic hyponatremia
Sodium improving
Continue to trend
Metabolic acidosis
Improving
Stop normal saline switch to LR
Elevated creatinine with BUN likely secondary to GI.
Improving
Leukocytosis likely stress
Trending down
Afebrile
Follow-up on the blood cultures
Diabetes mellitus
Hold p.o. meds
Sliding scale
Accu-Cheks
Smoking - patch requested
ETOH/hepatic cirrhosis
CT abdomen pelvis with cirrhosis. Splenomegaly noted.
Check coags.
Hepatitis panel pending
Essential HTN - ok for now, hold BP meds. Monitor.
DVT prophylaxis SCDs in the setting of GI bleed
Discussed with electrical test engineer
Total Critical Care Time_ 35 _ minutes. I was immediately available to the patient and staff. I personally examined, reviewed labs, diagnostic images/reports, interpretations, treatment plans, discussed patient care with other providers and
family or caregivers (if patient is unable to make decisions), entered orders as appropriate and documented the medical record.
Anticipated Discharge: > 48 hours
Subjective/Interval History
-
Date of Service: August 18, 2023
Denies any abdominal pain or cramps
Objective Data
-
Labs:
Laboratory Results
08/18/23 08/18/23 08/18/23
03:39 08:57 15:00
WBC 21.7 H
Hgb 7.6 L 7.1 L Cancelled
Hct 22.0 L 20.5 L* Cancelled
Plt Count 146 D
Sodium 133 L
Potassium 4.7
Chloride 107
Carbon Dioxide 23
BUN 36 H
Creatinine 0.9
Glucose 130 H
Calcium 8.4
Vital Signs:
Vital Signs
Temp Pulse Resp BP Pulse Ox
98.6 F 78 14 100/46 94
08/18/23 11:24 08/18/23 11:01 08/18/23 11:01 08/18/23 11:01 08/18/23 11:01
I&O
08/17/23 08/18/23 08/19/23
06:59 06:59 06:59
Intake Total 3338.7 / 3540.4 756.8 / 756.8
Output Total 1050 / 1050 600 / 600
Balance 2288.7 / 2490.4 156.8 / 156.8
Physical Exam
-
General: Well Developed, No Apparent Distress and Other (pale)
HEENT: Normocephalic, Atraumatic and Moist Mucous Membranes
Respiratory: Clear to Auscultation
Cardiac: Regular Rhythm and S1/S2; Negative Murmur, Rub or Gallop
GI: Soft, Nontender, Nondistended and Normal Bowel Sounds; Negative Organomegaly
Rectal: Deferred by Provider
Musculoskeletal: No Clubbing, No Cyanosis and No Edema
Skin: Negative Rash
Neuro: Awake, AO x 3 and Nonfocal/Grossly Intact
Psych: Calm
--- NOTE | 2023-08-18 13:18 | PTCARENOTE ---
repeated hypotension. fluids resumed, second unit PRBC initiated
--- NOTE | 2023-08-18 14:17 | PTCARENOTE ---
patient transfer to GI lab
[2023-08-18 14:58] LABS: Glucose - Point of Care 158 mg/dl (70-99)
--- NOTE | 2023-08-18 15:15 | W.PN.UPDATE ---
Update Note
Progress Note Update
EGD:
2 large ulcers one more an excavating ulcer in the site of previous of 'submucosal lesion with erosion'. Very deep. not bleeding now, epinephrine to tamponade around but too deep for any other safe treatment
1. transfuse to keep up
2. IV PPI ggt
3. continue octreotide for now
4. follow hgb
5. if major rebleed (would expect some oozing) then will need IR vs surgery
spoke to braulio as well.
[2023-08-18] MEDS: FLUSH (NSS) 1 FLUSH IV ×2 (15:29→15:40)
[2023-08-18] MEDS: STERILE WATER FOR INJECTION 20 ML IV (15:29)
[2023-08-18] MEDS: NICODERM TRANSDERMAL 7 MG TRANSDERM (15:30)
[2023-08-18] MEDS: FOLVITE PO (15:30)
[2023-08-18] MEDS: ROCEPHIN 1000 MG IV (15:30)
[2023-08-18] MEDS: ZITHROMAX INFUSION 250 IV (15:37)
[2023-08-18] MEDS: AQUAMEPHYTON 50.5 MG IV (15:40)
--- NOTE | 2023-08-18 15:48 | PTCARENOTE ---
recieved from GI lab. drowsy, lungs with coarse breath sounds bilaterally. second unit PRBC completed without signs reaction
[2023-08-18 16:20] LABS: Hematocrit 27.5 % (39.0-52.0)
[2023-08-18 16:21] LABS: Hemoglobin 9.6 g/dL (13.0-18.0)
[2023-08-18] MEDS: FOLVITE 50.2000000000000028 MG IV (16:31)
--- NOTE | 2023-08-18 16:51 | PTCARENOTE ---
hospitalist, GI updated with repeat HH. no new orders at this time. patient remains drowsy, bed alarm maintained. informed patient when he needs to void alert staff as a specimen is needed. family at bedside
[2023-08-18 17:20] LABS: Glucose - Point of Care 141 mg/dl (70-99)
[2023-08-18] MEDS: NOVOLOG FLEXPEN-LOW RESISTANCE SC (17:34)
[2023-08-18 18:28] LABS: Urine Albumin Negative (Neg - Trace); Urine Bilirubin Negative (Negative); Urine Character Clear (Clear); Urine Color Yellow; Urine Glucose Negative (Negative); Urine Ketone Negative (Negative); Urine Leukocyte Negative (Negative); Urine Nitrite Negative (Negative); Urine Occult Blood Negative (Negative); Urine Specific Gravity 1.015 (<1.030); Urine Urobilinogen Negative (Neg - 1+)
--- NOTE | 2023-08-18 20:40 | PTCARENOTE ---
Pt received at 19:00. Ox2, drowsy but easily arousable, forgetful but easily reoriented. SR, palpable pulses. RA, pulse ox 95%. Breath sounds clear/diminished at the bases. Abdomen round, nontender, denies nausea--no vomiting or BM at this time.
Safe environment maintained, call menchaca within reach, plan of care ongoing.
[2023-08-18] MEDS: THIAMINE INJECTION 200 MG IV (21:06)
[2023-08-18 22:14] LABS: Hematocrit 24.8 % (39.0-52.0)
[2023-08-18] MEDS: MELATONIN 10 MG PO (22:28)
[2023-08-19] VITALS (28 sets, daily range): BP systolic 96–139; BP diastolic 51–96; BMI 27.4
[2023-08-19 00:38] LABS: Glucose - Point of Care 141 mg/dl (70-99)
[2023-08-19] MEDS: NOVOLOG FLEXPEN-LOW RESISTANCE SC ×2 (00:41→05:15)
[2023-08-19 04:52] LABS: % Basophils 0.6 % (0-2); % Eosinophils 0.2 % (0-6); % Immature Granulocytes 1.5 % (0-0.5); % Lymphocytes 18.4 % (20.5-51.1); % Neutrophils 71.3 % (42.2-75.2); Absolute Basophils 0.1 10^3/uL (0-0.2); Absolute Immature Granulocytes 0.2 10^3/uL (0-0.05); Absolute Monocytes 0.9 10^3/uL (0.1-0.6); Absolute Neutrophils 7.6 10^3/uL (1.4-6.5); Hematocrit 24.4 % (39.0-52.0); Hemoglobin 8.6 g/dL (13.0-18.0); Mean Corp Hgb Conc. 35.2 g/dL (33.0-37.0); Mean Corpuscular Volume 93.5 fL (80.0-94.0); Nucleated Red Blood Cells % 0 % (-); Platelet Count 103 10^3/uL (130-400); Red Blood Cell Count 2.61 10^6/uL (4.70-6.10); Red Cell Dist. Width 16.8 % (11.5-14.5); White Blood Cell Count 10.7 10^3/uL (4.8-10.8)
[2023-08-19 04:54] LABS: INR 1.56; PT 18.5 Sec (11.4-14.6)
[2023-08-19 05:06] LABS: ALT (SGPT) 51 U/L (0-50); AST (SGOT) 94 U/L (17-59); Albumin 2.1 g/dl (3.5-5.0); Alkaline Phosphatase 88 U/L (38-126); Blood Urea Nitrogen 24 mg/dl (9-20); Carbon Dioxide 23 mmol/L (22-30); Chloride 105 mmol/L (98-107); Direct Bilirubin 0.6 mg/dl (0.0-0.4); Estimated Creatinine Clearance 97 ml/min; GGTP 39 U/L (15-73); Glucose 143 mg/dl (70-99); Magnesium 1.6 mg/dl (1.6-2.3); Phosphorus 3.2 mg/dl (2.5-4.5); Potassium 3.5 mmol/L (3.5-5.1); Sodium 129 mmol/L (135-145); Total Bilirubin 2.1 mg/dl (0.2-1.3); Total Protein 4.7 g/dl (6.3-8.2); eGFR > 60.00
[2023-08-19] MEDS: LR 1000 IV (05:28)
[2023-08-19] MEDS: PROTONIX 100 IV ×3 (05:29→23:31)
[2023-08-19] MEDS: MAGNESIUM SULFATE 102 GRAMS IV (05:34)
[2023-08-19] MEDS: KCL 160 MEQ IV (05:34)
[2023-08-19 06:05] LABS: Glucose - Point of Care 125 mg/dl (70-99)
--- NOTE | 2023-08-19 07:15 | W.PN.INTV ---
Today's Communication / Plan
Recommendations
Doing well at this time, stable/no events
Can stop abx at this point
Diet advanced, stop IVFs
Encouraged OOB/PT/OT
Can transfer to tele at this time, we will sign off upon transfer
Assessment
-
58-year-old male with a PMHx of alcohol use disorder, tobacco use disorder, history of diverticulitis, DM type II and hypertension who was BIBEMS for vomiting/diarrhea X 3 days and presyncope. Patient says that he has been having very dark/black
stools for the last few days and almost passed out at home. He did state that he fell several weeks ago after walking his dogs and fell onto the left side of his ribs. He came to the ER that day and on 08/04/2023, rib/chest x-ray showed displaced
lateral left third through ninth rib fractures. He has been taking pain medications with NSAIDs recently. He also has been drinking alcohol. CTA abdomen/pelvis showed hepatic cirrhosis with splenomegaly, and duodenitis with suspected ulceration
at the proximal duodenum with wall thickening and fat stranding. Patient started on PPI drip, and gastroenterology was consulted. Octreotide drip was then started, multiple PRBC transfusions were initiated and he was transferred to the ICU for
admission. Pc Maintenance Technician service now consulted for additional management/recommendations.
Impression:
#Upper gastrointestinal hemorrhage due to suspected duodenal PUD with ulceration in setting of recent NSAID use and alcoholic cirrhosis with possible varices
#Acute blood loss anemia
#Coagulopathy with increased INR
#Hyponatremia - this suspected to be due to beer potomania in the setting of cirrhosis with reduced oncotic pressure
#Multifocal CAP with patchy opacities involving RML, lingula and RLL
#Hyperbilirubinemia - likely due to cirrhosis
#Severe atherosclerosis involving aortobiiliac arteries
#Recent fall with mildly displaced lateral left third through ninth rib fractures
#DM type II
#Alcohol abuse
#Tobacco use disorder
Chronic medical conditions [employer] [facility]:
Hepatic cirrhosis due to alcohol abuse
Hypertension
Hypercholesterolemia
DM type II
History diverticulitis
Tobacco use disorder
Plan:
High risk for ETOH w/d
Continue thiamine, folate and MVN
MSAS with prn ativan
Strict alcohol abstinence going forward; he should speak to '[facility]' prior to discharge
Nicotine patch
Seizure precautions
GIB
- Large bore IV x2
- PPI gtt and octreotide gtt--wean to off
- IVF with LR at 100mL/hr--stop IVFs when diet advanced
- GI on board --> patient needs to be transfused to get Hb >7-8g/dL given he is actively bleeding, and he will obtain EGD tomorrow
- Goal INR <1.8 --> I will give vitamin K to help normalize his INR level
- Advance diet per team
- Check viral hepatitis panel
CXR reviewed: no clear defined opacities
No fever/WBC could be elevated in setting of GIB
Culture to date negative
Currently on CTX for prophylaxis and resp coverage--i see no indication to continue
Can likely stop if no further culture results demonstrate infection
Follow temp curve/WBC
Hemodynamically stable off pressors
Maintain MAP>65
Prior ECHO in past with stable function
Resume statin
Goal BG 140-180mg/dL
Renal function adequate
Creat stable
Follow I/Os, UO
Replete electrolytes with K>4, Mg>2
Transfuse as needed
DVT ppx: SCDs for now
Diagnostic Data
CTA Abd/Pelvis with/without IV contrast 08-17-2023:
1. Duodenitis and suspected ulceration of the proximal duodenum with wall thickening and inflammatory fat stranding. This likely accounts for the site of gastrointestinal bleeding, although no CTA evidence for active arterial bleeding during this
exam. Large amount of blood products throughout the gastrointestinal tract, as above.
2. Hepatic cirrhosis.
3. Splenomegaly and multiple small low-attenuation splenic lesions, potentially siderotic nodules in the setting of cirrhosis although other infiltrative processes are not excluded.
4. Cholelithiasis.
5. Gallbladder wall thickening is favored to be reactive from the adjacent duodenal inflammation.
6. Severe aortobiiliac calcified atherosclerosis.
7. Diffuse urinary bladder wall thickening for which correlation with a urinalysis is recommended.
8. Colonic diverticulosis.
9. Mild pneumonitis in the right lower lobe.
Ribs with chest XR 08-04-2023: Mildly displaced lateral left third through ninth rib fractures. Patchy bilateral airspace disease suspicious for pneumonia/interstitial pneumonitis.
ECHO 09/05/20: Normal left ventricular size, wall thickness and systolic function. No regional wall motion abnormalities are seen. Estimated ejection fraction is 55- 60%. Normal diastolic function. Since echocardiogram October 2015, there is no
significant change.
-----
Critical Care time 35 mins -- The patient is admitted for acute critical illness for the treatment of vital organ failure and/or prevention of further life-threatening conditions. Total care includes time spent in review of history, physical exam,
medications, hemodynamic/ventilator parameters, laboratory data, imaging and discussion with house staff, pharmacy, respiratory therapy, electrical systems engineer, and nursing.
Subjective Dataa
Subjective Data
Date of Service:
Date of Service: August 19, 2023
Chief Complaint: Pc Maintenance Technician Follow Up
Subjective:
no acute events on
remains stable on room air
pain at site of rib fracture but no abd pain
Objective Data
Data Reviewed
Vital Signs / I&O / Oxygen:
Vital Signs
Temp Pulse Resp BP Pulse Ox
97.9 F 62 15 120/67 96
08/19/23 03:08 08/19/23 03:45 08/19/23 03:45 08/19/23 03:30 08/19/23 03:45
Intake and Output
08/18/23 08/19/23 08/20/23
06:59 06:59 06:59
Intake Total 3338.7 / 3540.4 4882.3 / 4882.3
Output Total 1050 / 1050 2750 / 2750
Balance 2288.7 / 2490.4 2132.3 / 2132.3
SaO2 96
Physical Exam
General: Comfortable, Pain (at rib fracture area) and Other (NAD)
HEENT: Normocephalic, Anicteric and Moist Mucous Membranes
Cardiovascular: S1-S2 and Regular Rhythm
Respiratory: Clear and Non-Labored Respirations
GI: Soft, Non Distended and Non Tender
Neurology: Awake, Alert, Oriented, AO x 3 and No Motor Deficits
Skin: Warm, Dry and Good Color
Labs/Micro/Reports
Lab Data
08/19/23 04:24
Laboratory Results
08/19/23
04:23
PT 18.5 H
INR 1.56
Microbiology
08/17/23 16:44 Blood/Venous Blood Culture - Preliminary
No Growth in 24 hours- Final report to follow
08/17/23 16:44 Blood/Venous Blood Culture - Preliminary
No Growth in 24 hours- Final report to follow
[2023-08-19] MEDS: ZITHROMAX 250 MG PO (07:44)
[2023-08-19] MEDS: NICODERM TRANSDERMAL TRANSDERM (07:45)
[2023-08-19] MEDS: FOLVITE 1 MG PO (07:45)
[2023-08-19] MEDS: THIAMINE INJECTION 200 MG IV ×2 (07:45→19:56)
[2023-08-19] MEDS: COSOPT EYE DROPS 1 DROP BOTH EYES ×2 (07:45→19:56)
[2023-08-19] MEDS: THERAGRAN 1 TABLET PO (07:45)
[2023-08-19] MEDS: SANDOSTATIN 500.600000000000023 MCG IV (07:47)
--- NOTE | 2023-08-19 08:44 | W.PN.GI.CBS2 ---
Today's Communication / Plan
-
continue PPI ggt
d/c octeotide
advance diet
Assessment / Plan
-
This patient is a 58-year-old male with a history of alcohol abuse, newly diagnosed cirrhosis, submucosal lesion of the small bowel with known DU who is lost to follow-up. He does come with an upper GI bleed after taking NSAIDs for rib injury.
EGD on 08/18/23 showed 2 large DUs one that was deep and created a cavity. Epi injection only, no vessel to treat.
1. continue PPI ggt
2. follow hgb
3. avoid nsaids
4. d/c octreotide ggt.
5. advance diet
6. hep panel pending will add afp, heterozygous H63D
7. will need outpatient f/u for repeat egd and discussion of alcohol abstinence and liver disease
will follow
Subjective
Subjective
Date of Service: August 19, 2023
Pt with no bleeding, feels much better.
Objective
Data Reviewed
Laboratory Data:
Laboratory Results
08/19/23 04:24
Laboratory Results
PT 18.5 Sec (11.4-14.6) H 08/19/23 04:23
INR 1.56 08/19/23 04:23
APTT 37.0 Sec (23.4-35.0) H 08/18/23 00:03
Phosphorus 3.2 mg/dl (2.5-4.5) 08/19/23 04:24
Magnesium 1.6 mg/dl (1.6-2.3) 08/19/23 04:24
Total Bilirubin 2.1 mg/dl (0.2-1.3) H 08/19/23 04:24
AST 94 U/L (17-59) H 08/19/23 04:24
ALT 51 U/L (0-50) H 08/19/23 04:24
Alkaline Phosphatase 88 U/L (38-126) 08/19/23 04:24
Vital Signs and I&O:
Vital Signs
Temp Pulse Resp BP Pulse Ox
98.2 F 65 12 122/67 96
08/19/23 07:52 08/19/23 08:15 08/19/23 08:15 08/19/23 08:00 08/19/23 08:15
I&O
08/18/23 08/19/23 08/20/23
06:59 06:59 06:59
Intake Total 3338.7 / 3540.4 5034.0 / 5185.7 753.4 / 753.4
Output Total 1050 / 1050 2750 / 3250 500 / 500
Balance 2288.7 / 2490.4 2284.0 / 1935.7 253.4 / 253.4
Physical Exam
Physical Exam
GI: Soft and Non Tender
--- NOTE | 2023-08-19 09:43 | PTCARENOTE ---
bedside echo being completed. will assist patient OOB when test complete.
--- NOTE | 2023-08-19 11:00 | CM ---
Addendum entered by Danii Diaz 08/19/23 14:37:
SIDNEY met with patient and provided outpatient supports/resources and their card. Patient was not interested in inpatient treatment at this time. Patient reported to [facility] that he had been at inpatient treatment at the [facility] in [place]
last year.
Original Note:
Patient seen at bedside. Patient states that he has no needs and plan is for discharge home at this time. CM will confirm SIDNEY met with patient as requested 08/15. CM will continue to follow for discharge planning needs.
Plan; home with no needs; watch for SIDNEY
[2023-08-19] MEDS: FLUSH (NSS) IV ×2 (11:07→12:24)
[2023-08-19] MEDS: STERILE WATER FOR INJECTION IV (11:08)
--- NOTE | 2023-08-19 11:08 | PTCARENOTE ---
Sandostatin gtt discontinued. Offered to get patient OOB to chair. Patient stated he would like to sleep more. Toothbrush and toothpaste at bedside, patient is a self. Has been downgraded to telemetry.
[2023-08-19 11:59] LABS: Glucose - Point of Care 153 mg/dl (70-99)
[2023-08-19] MEDS: NOVOLOG FLEXPEN-LOW RESISTANCE 1 UNITS SC ×2 (12:23→17:22)
[2023-08-19 13:04] LABS: Hematocrit 25.9 % (39.0-52.0); Hemoglobin 9.2 g/dL (13.0-18.0)
--- NOTE | 2023-08-19 13:07 | W.PN.HOSP.TC ---
Today's Communication/Plan
-
Diet/PPI per GI
Stop further antibiotics
transfer to tele
Assessment / Plan
Assessment / Plan
CT abd/pelvis
Duodenitis and suspected ulceration of the proximal duodenum with wall thickening and inflammatory fat stranding. This likely accounts for the site of gastrointestinal bleeding, although no CTA evidence for active arterial bleeding during this exam.
Large amount of blood products throughout the gastrointestinal tract, as above.
EGD on 08/17
- Grade I esophageal varices.
- Erosive gastropathy with no stigmata of recent bleeding.
- Duodenal ulcers with pigmented material. Injected.
- No specimens collected.
1. Peptic ulcer disease
Esophageal varices
Acute blood loss anemia
-S/p EGD on 08/17 with findings as above
-Required 5 unit of blood transfusion this admission
-GI cleared patient diet to be advanced
-Octreotide to be stopped
-Continue PPI drip
-Continue follow-up hemoglobin with further transfusion as needed for hemoglobin less than 7
-Patient to avoid any future NSAID use moving forward
2. Acute hyponatremia
-euvolemic on exam .
-ADH excess with bleed stated and cirrhosis likely contributing
-Check urine electrolytes
-Will start limiting fluid intake once on regular diet
3. Cirrhosis presumed alcohol use related
Associated thrombocytopenia/coagulopathy/elevated total bilirubin/transaminitis
-Hepatitis panel sent
-Will require follow-up with GI in office periodically
4. Metabolic acidosis
- resolved
5. Reactive leukocytosis
-normalized, no signs of ongoing infection.
-On empiric Rocephin and azithromycin, will discontinue
6. Type II DM
-Maintain insulin sliding scale
7. Tobacco use disorder
-On nicotine patch
8. Essential HTN
-Controlled off of blood pressure medication continue monitoring
DVT prophylaxis SCDs in the setting of GI bleed
Discussed with Gastroenterology
Anticipated Discharge: 24 - 48 hours
Subjective/Interval History
-
Date of Service: August 19, 2023
No reported bleeding overnight
Objective Data
-
Labs:
Laboratory Results
08/19/23 08/19/23 08/19/23
04:23 04:24 12:49
WBC 10.7
Hgb 8.6 L Pending
Hct 24.4 L Pending
Plt Count 103 L D
PT 18.5 H
INR 1.56
Sodium 129 L
Potassium 3.5 D
Chloride 105
Carbon Dioxide 23
BUN 24 H
Creatinine 0.9
Glucose 143 H
Calcium 8.0 L
Total Bilirubin 2.1 H
AST 94 H
ALT 51 H
Alkaline Phosphatase 88
Vital Signs:
Vital Signs
Temp Pulse Resp BP Pulse Ox
97.5 F 60 16 121/67 94
08/19/23 10:40 08/19/23 11:45 08/19/23 11:45 08/19/23 11:30 08/19/23 11:45
I&O
08/18/23 08/19/23 08/20/23
06:59 06:59 06:59
Intake Total 3338.7 / 3540.4 5034.0 / 5185.7 1125.1 / 1125.1
Output Total 1050 / 1050 2750 / 3250 1100 / 1100
Balance 2288.7 / 2490.4 2284.0 / 1935.7 25.1 / 25.1
Review of Systems
-
Respiratory: Reports No Symptoms
Cardiac: Reports No Symptoms
Abdomen/GI: Reports No Symptoms
Physical Exam
-
General: Other (pale)
HEENT: Negative Oxygen
Respiratory: Clear to Auscultation
Cardiac: Regular Rhythm and S1/S2; Negative Murmur or Rub
GI: Soft, Nontender and Normal Bowel Sounds
Musculoskeletal: No Edema
Skin: Negative Rash
Neuro: Awake, Alert, Oriented, AO x 3 and Nonfocal/Grossly Intact
Psych: Calm
--- NOTE | 2023-08-19 13:33 | PTCARENOTE ---
Patient OOB to chair, tele pack applied, assisted patient with wearing pants. MARIELOSAREs in to speak with patient. He remains completely oriented and able to make needs known.
--- NOTE | 2023-08-19 15:08 | PTOTSP ---
Therapist spoke with the patient, who reports he has remained independent with mobility and there have been no changes in his functioning since being here. Patient denied the need for PT consult and agreeable to PT signing off; patient is aware our
services our available if needs arise. PT will sign off. Discussed with RN.
[2023-08-19 16:58] LABS: Glucose - Point of Care 198 mg/dl (70-99)
[2023-08-19 18:54] LABS: Osmolality Urine 559 mOsm/kg (300-900)
--- NOTE | 2023-08-19 19:00 | PTCARENOTE ---
received patient from previous RN. pt AAOX3. pt ambulating in halls independently. SR on telemetry heart rate in 60s. pulses palpable. no edema. pt on room air, sat 99%. lung sounds diminished in bases. occasional cough. voiding in bathroom.
tolerating diet. denies nausea. active bowel sounds. denies bowel movement today. Protonix gtt infusing. see worklist for full nursing assessment and interventions.
[2023-08-19 20:09] LABS: Urine Sodium 99 mmol/L (30-90)
[2023-08-19 21:50] LABS: Glucose - Point of Care 191 mg/dl (70-99)
[2023-08-19] MEDS: MELATONIN 5 MG PO (23:31)
[2023-08-20 07:02] LABS: Hepatitis B Surface Antigen Negative (Negative)
[2023-08-20 07:20] LABS: Hepatitis B Core Ab, Total Negative (Negative); Hepatitis C Antibody Negative (Negative)
[2023-08-20 07:30] VITALS: BP 115/50
[2023-08-20 07:33] LABS: Glucose - Point of Care 146 mg/dl (70-99)
[2023-08-20 07:37] LABS: Hematocrit 27.8 % (39.0-52.0); Hemoglobin 9.9 g/dL (13.0-18.0); Mean Corp Hgb Conc. 35.6 g/dL (33.0-37.0); Mean Corpuscular Hgb 33.2 pg (27.0-31.0); Mean Corpuscular Volume 93.3 fL (80.0-94.0); Platelet Count 123 10^3/uL (130-400); Red Blood Cell Count 2.98 10^6/uL (4.70-6.10); Red Cell Dist. Width 17.4 % (11.5-14.5); White Blood Cell Count 9.7 10^3/uL (4.8-10.8)
[2023-08-20] MEDS: NOVOLOG FLEXPEN-LOW RESISTANCE SC ×3 (07:37→17:03)
[2023-08-20] MEDS: NICODERM TRANSDERMAL 7 MG TRANSDERM (07:39)
[2023-08-20] MEDS: FOLVITE 1 MG PO (07:39)
[2023-08-20] MEDS: THIAMINE INJECTION 200 MG IV ×2 (07:40→20:54)
[2023-08-20] MEDS: COSOPT EYE DROPS 1 DROP BOTH EYES ×2 (07:40→20:54)
[2023-08-20] MEDS: THERAGRAN 1 TABLET PO (07:51)
--- NOTE | 2023-08-20 08:36 | W.PN.HOSP.TC ---
Today's Communication/Plan
-
lidocaine patch/oxy for rib # pain
check BMP > Na level
dischargable home if cleared by GI
Assessment / Plan
Assessment / Plan
CT abdomen/pelvis
Duodenitis and suspected ulceration of the proximal duodenum with wall thickening and inflammatory fat stranding. This likely accounts for the site of gastrointestinal bleeding, although no CTA evidence for active arterial bleeding during this exam.
Large amount of blood products throughout the gastrointestinal tract, as above.
EGD on 08/17
- Grade I esophageal varices.
- Erosive gastropathy with no stigmata of recent bleeding.
- Duodenal ulcers with pigmented material. Injected.
- No specimens collected.

1. Peptic ulcer disease
Esophageal varices
Acute blood loss anemia
-S/p EGD on 08/17 with findings as above
-Required 5 unit of blood transfusion this admission
-GI cleared patient diet to be advanced
-Octreotide to be stopped
-Continue PPI drip
-Continue follow-up hemoglobin with further transfusion as needed for hemoglobin less than 7
-Patient to avoid any future NSAID use moving forward
2. Acute hyponatremia
-euvolemic on exam .
-ADH excess with bleed stated and cirrhosis likely contributing
-Urine Na 99 and urine osm 559.
-restrict water intake 40 0z
-Also on prozac and needs to be discontinued if hyponatremia persists. will need to f/u with PCP/nephro.
3. Cirrhosis presumed alcohol use related
Associated thrombocytopenia/coagulopathy/elevated total bilirubin/transaminitis
-Hepatitis panel sent
-Will require follow-up with GI in office periodically
4. Metabolic acidosis
- resolved
5. Reactive leukocytosis
-normalized, no signs of ongoing infection.
-On empiric Rocephin and azithromycin, will discontinue
6. Type II DM
-Maintain insulin sliding scale
7. Tobacco use disorder
-On nicotine patch
8. Essential HTN
-Controlled off of blood pressure medication continue monitoring
9. Ninth rib fracture
- dx on rib xr 08/03
- having some pain at site, lidocaine patch/oxycodone ordered
DVT prophylaxis SCDs in the setting of GI bleed
Discussed with Gastroenterology
Anticipated Discharge: Today
Subjective/Interval History
-
Date of Service: August 20, 2023
complaining some left rib cage pain on activity/certain position
no melena/blood containing stool
Objective Data
-
Labs:
Laboratory Results
08/20/23
06:50
WBC 9.7
Hgb 9.9 L
Hct 27.8 L
Plt Count 123 L
Vital Signs:
Vital Signs
Temp Pulse Resp BP Pulse Ox
97.5 F 62 18 115/50 100
08/20/23 07:30 08/20/23 07:30 08/20/23 07:30 08/20/23 07:30 08/20/23 07:30
I&O
08/19/23 08/20/23 08/21/23
06:59 06:59 06:59
Intake Total 5034.0 / 5185.7 2115.1 / 2115.1
Output Total 2750 / 3250 1900 / 1900
Balance 2284.0 / 1935.7 215.1 / 215.1
Review of Systems
-
Respiratory: Reports No Symptoms
Cardiac: Reports No Symptoms
Abdomen/GI: Reports No Symptoms
Physical Exam
-
General: Other (pale)
HEENT: Negative Oxygen
Respiratory: Clear to Auscultation
Cardiac: Regular Rhythm and S1/S2; Negative Murmur or Rub
GI: Soft, Nontender and Normal Bowel Sounds
Musculoskeletal: No Edema
Skin: Negative Rash
Neuro: Awake, Alert, Oriented, AO x 3 and Nonfocal/Grossly Intact
Psych: Calm
[2023-08-20] MEDS: PROTONIX 100 IV ×2 (09:28→20:54)
[2023-08-20] MEDS: LIDOCAINE 4% PATCH 1 PATCH TOPICAL (09:28)
--- NOTE | 2023-08-20 10:47 | CM ---
Patient seen in chair, reports no new concerns. Per Hospitalist note, patient can discharge is clear by GI. CM will continue to follow for discharge planning needs.
Plan; home no needs.
[2023-08-20 11:45] VITALS: BP 122/63
[2023-08-20 12:45] LABS: Glucose - Point of Care 149 mg/dl (70-99)
[2023-08-20 12:46] LABS: Blood Urea Nitrogen 18 mg/dl (9-20); Calcium 8.9 mg/dl (8.4-10.2); Carbon Dioxide 21 mmol/L (22-30); Chloride 103 mmol/L (98-107); Estimated Creatinine Clearance 87 ml/min; Glucose 138 mg/dl (70-99); Potassium 3.8 mmol/L (3.5-5.1); Sodium 133 mmol/L (135-145); eGFR > 60.00
[2023-08-20 13:47] LABS: Transferrin 182 mg/dL (200-360)
[2023-08-20] MEDS: FLUSH (NSS) IV ×2 (14:24→15:36)
[2023-08-20] MEDS: STERILE WATER FOR INJECTION IV (14:25)
--- NOTE | 2023-08-20 15:06 | W.PN.GI.CBS2 ---
Addendum entered and electronically signed by Alcon Garcia MD 08/20/23 16:19:
I saw and examined the patient.
The GLASS GLAZIER or PA's note was reviewed and I agree with the note.
Comment: 58 yo M pmh EtOh abuse here with large DU 2/2 NSAIDs as well as new diagnosis cirrhosis.
I reviewed endoscopic images myself - pigmented spot treated with Epi.
Although technically not high risk stigmata with such large ulcer recommend 72 hours ppi gtt.
On d/c plan protonix 40 bid.
GI outpatient follow up.
D/w Dr. Townsend ok GI POV for dc in am if no further bleeding.
Original Note:
Today's Communication / Plan
-
cont PPI gtt 1 more day
NSAID avoidance, ok for Tylenol less than 2 grams/day but hold off if rib pain better
trend hbg and monitor for rebleeding
counseled on ETOH abstinence
hepatitis neg, add AFP as not added, will neeed OP furtther liver serology and heterozygous H63D
will need outpatient f/u for repeat egd and discussion of alcohol abstinence and liver disease-- sent message to office to arrange 3-4 weeks followup
possible discharge in AM pending hbg and no further signs of bleeding
Assessment / Plan
-
This patient is a 58-year-old male with a history of alcohol abuse, newly diagnosed cirrhosis, submucosal lesion of the small bowel with known DU who is lost to follow-up. He does come with an upper GI bleed after taking NSAIDs for rib injury.
EGD on 08/18/23 showed 2 large DUs one that was deep and created a cavity. Epi injection only, no vessel to treat.
-DU
-recent NSAID use for rib fracture
-anemia
-cirrhosis
-hx submucosal lesion of small bowel
-thrombocytopenia
-coagulopathy
PLAN:
cont PPI gtt 1 more day
NSAID avoidance -- ok for Tylenol less than 2 grams/day but hold off if rib pain better
trend hbg and monitor for rebleeding
counseled on ETOH abstinence
hepatitis neg, add AFP as not added, will neeed OP furtther liver serology and heterozygous H63D
will need outpatient f/u for repeat egd and discussion of alcohol abstinence and liver disease-- sent message to office to arrange 3-4 weeks followup
possible discharge in AM pending hbg and no further signs of bleeding
Subjective
Subjective
Date of Service: August 20, 2023
08/17 black/burgundy stools on regular diet no abdominal pain feeling better
Objective
Data Reviewed
Laboratory Data:
Laboratory Results
08/20/23 06:50
08/20/23 06:50
Laboratory Results
PT 18.5 Sec (11.4-14.6) H 08/19/23 04:23
INR 1.56 08/19/23 04:23
APTT 37.0 Sec (23.4-35.0) H 08/18/23 00:03
Phosphorus 3.2 mg/dl (2.5-4.5) 08/19/23 04:24
Magnesium 1.6 mg/dl (1.6-2.3) 08/19/23 04:24
Total Bilirubin 2.1 mg/dl (0.2-1.3) H 08/19/23 04:24
AST 94 U/L (17-59) H 08/19/23 04:24
ALT 51 U/L (0-50) H 08/19/23 04:24
Alkaline Phosphatase 88 U/L (38-126) 08/19/23 04:24
Vital Signs and I&O:
Vital Signs
Temp Pulse Resp BP Pulse Ox
98.0 F 55 19 122/63 100
08/20/23 11:45 08/20/23 11:45 08/20/23 11:45 08/20/23 11:45 08/20/23 11:45
I&O
08/19/23 08/20/23 08/21/23
06:59 06:59 06:59
Intake Total 5034.0 / 5185.7 2114. /
Output Total 2750 / 3250 1899 / 1899
Balance 2284.0 / 1935.7 215.1 / 215.1
Physical Exam
Physical Exam
HEENT: Anicteric and Moist mucous membranes
Cardiology: Normal Sinus Rhythm
Pulmonary: Clear
GI: Soft, Non Distended and Non Tender
Extremities: No Edema
Neuro: Non Focal
[2023-08-20 15:30] VITALS: BP 120/79
--- NOTE | 2023-08-20 16:19 | W.PN.UPDATE ---
Update Note
Progress Note Update
billing purposes only
[2023-08-20 16:23] LABS: Glucose - Point of Care 123 mg/dl (70-99)
[2023-08-20] MEDS: ROXICODONE 5 MG PO (18:10)
[2023-08-20 19:20] VITALS: BP 105/67
[2023-08-20 20:15] VITALS: BP 105/67
[2023-08-20 21:22] LABS: Glucose - Point of Care 151 mg/dl (70-99)
[2023-08-20] MEDS: ROXICODONE 10 MG PO (22:06)
[2023-08-20 23:15] VITALS: BP 108/66
[2023-08-21 03:11] VITALS: BP 119/60
[2023-08-21] MEDS: PROTONIX 100 IV (05:03)
[2023-08-21 07:30] VITALS: BP 104/58
[2023-08-21] MEDS: COSOPT EYE DROPS 1 DROP BOTH EYES (07:36)
[2023-08-21] MEDS: LIDOCAINE 4% PATCH 1 PATCH TOPICAL (07:36)
[2023-08-21] MEDS: NICODERM TRANSDERMAL 7 MG TRANSDERM (07:37)
[2023-08-21] MEDS: FOLVITE 1 MG PO (07:37)
[2023-08-21] MEDS: THERAGRAN 1 TABLET PO (07:37)
[2023-08-21 07:38] LABS: Glucose - Point of Care 158 mg/dl (70-99)
[2023-08-21] MEDS: THIAMINE INJECTION 200 MG IV (07:38)
[2023-08-21] MEDS: NOVOLOG FLEXPEN-LOW RESISTANCE 1 UNITS SC (07:52)
[2023-08-21 08:14] LABS: Hematocrit 28.3 % (39.0-52.0); Hemoglobin 9.8 g/dL (13.0-18.0); Mean Corp Hgb Conc. 34.6 g/dL (33.0-37.0); Mean Corpuscular Hgb 32.7 pg (27.0-31.0); Mean Corpuscular Volume 94.3 fL (80.0-94.0); Platelet Count 111 10^3/uL (130-400); White Blood Cell Count 7.8 10^3/uL (4.8-10.8)
--- NOTE | 2023-08-21 10:51 | CM ---
Patient seen in chair, plan for discharge home with no need. Patient confirms he has transportation. CM will continue to follow for discharge planning needs.
Plan; home no needs.
[2023-08-21 11:15] VITALS: BP 112/51
[2023-08-21 12:31] LABS: Glucose - Point of Care 314 mg/dl (70-99)
--- NOTE | 2023-08-21 13:18 | W.PN.HOSP.TC ---
Today's Communication/Plan
-
d/c home
Assessment / Plan
Assessment / Plan
CT abdomen/pelvis
Duodenitis and suspected ulceration of the proximal duodenum with wall thickening and inflammatory fat stranding. This likely accounts for the site of gastrointestinal bleeding, although no CTA evidence for active arterial bleeding during this exam.
Large amount of blood products throughout the gastrointestinal tract, as above.
EGD on 08/17
- Grade I esophageal varices.
- Erosive gastropathy with no stigmata of recent bleeding.
- Duodenal ulcers with pigmented material. Injected.
- No specimens collected.

1. Peptic ulcer disease
Esophageal varices
Acute blood loss anemia
-S/p EGD on 08/17 with findings as above
-Required 5 unit of blood transfusion this admission
-GI cleared patient diet to be advanced
-Octreotide to be stopped
-PPI drip stopped today
-Hemoglobin remained stable. Patient to be discharged on oral Protonix twice daily.
2. Acute hyponatremia -improved
-euvolemic on exam .
-ADH excess with bleed stated and cirrhosis likely contributing
-Urine Na 99 and urine osm 559.
-Will require fluid restriction if have recurrence of hyponatremia
-Also on prozac and needs to be discontinued if hyponatremia persists. will need to f/u with PCP/nephro.
3. Cirrhosis presumed alcohol use related
Associated thrombocytopenia/coagulopathy/elevated total bilirubin/transaminitis
-Hepatitis panel sent
-Will require follow-up with GI in office periodically
4. Metabolic acidosis
- resolved
5. Reactive leukocytosis
-normalized, no signs of ongoing infection.
-On empiric Rocephin and azithromycin, will discontinue
6. Type II DM
-A1c of 5.2
-continue on home meds of jardiance
7. Tobacco use disorder
-On nicotine patch
8. Essential HTN
-Controlled off of blood pressure medication continue monitoring
9. Ninth rib fracture
- dx on rib xr 08/03
- having some pain at site, lidocaine patch/oxycodone ordered
DVT prophylaxis SCDs in the setting of GI bleed
Anticipated Discharge: Today
Subjective/Interval History
-
Date of Service: August 21, 2023
No new complaints overnight
Objective Data
-
Labs:
Laboratory Results
08/21/23
07:09
WBC 7.8
Hgb 9.8 L
Hct 28.3 L
Plt Count 111 L
Vital Signs:
Vital Signs
Temp Pulse Resp BP Pulse Ox
98.5 F 59 19 112/51 100
08/21/23 11:15 08/21/23 11:15 08/21/23 11:15 08/21/23 11:15 08/21/23 11:15
I&O
08/20/23 08/21/23 08/22/23
06:59 06:59 06:59
Intake Total 2115.1 / 2115.1 1559 / 1559
Output Total 1899 / 190
Balance 215.1 / 215.1 1559
Review of Systems
-
Respiratory: Reports No Symptoms
Cardiac: Reports No Symptoms
Abdomen/GI: Reports No Symptoms
Physical Exam
-
General: Other (pale)
HEENT: Negative Oxygen
Neuro: Awake, Alert, Oriented, AO x 3 and Nonfocal/Grossly Intact
Psych: Calm
[2023-08-21] MEDS: FLUZONE QUAD 2023-2024 SYRINGE 0.5 ML IM (13:25)
[2023-08-21] MEDS: NOVOLOG FLEXPEN-LOW RESISTANCE 4 UNITS SC (13:27)
[2023-08-22 19:27] LABS: AFP Male/Tumor Marker 2.53 ng/ml
--- NOTE | 2023-08-23 07:30 | W.DCSUMMARY ---
Discharge Summary
Discharge Data
Date of Admission: 08/17/23
Date of Discharge: 08/21/23
-
Pending Results: No
Hospital Course
Discharging Physician : Dr Alexander Townsend
Disposition : Home
Primary care physician : Dr Skylar Helton
Principal Discharge diagnosis :
Gastrointestinal bleed from peptic ulcer disease and esophageal varices
Acute blood loss anemia
Acute hyponatremia
Alcoholic cirrhosis
Thrombocytopenia
Coagulopathy
Elevated total bilirubin
Transaminitis
Chronic Discharge diagnosis :
Alcohol use disorder
Type 2 diabetes mellitus
Depression/anxiety
Hospital Course :
Patient is a 58-year-old male with above-mentioned past medical history came to ER with having new onset of dark-colored liquid stool for 2 3 days. Patient also had associated vomiting which was coffee-ground in color. Patient had near syncope
episode at home. In ER laboratory relation showing hemoglobin of 5.7 and concern of patient having upper GI bleed in light of coffee-ground emesis and melena. Patient does have history of alcohol use and concern of possible variceal bleed in
nature. Patient was provided blood transfusion and started on PPI/octreotide drip. GI was involved in care for further evaluation. Patient was taken to endoscopy lab following day which showed grade 1 esophageal varices, erosive gastropathy and
duodenal ulcer which was injected. Patient was transferred back to ICU for 72 hours of PPI drip support. patient had total finality of blood transfusion this admission. patient remained stable and was taken off of IV PPI/octreotide drip.
Discharge patient transition to oral twice daily PPI and have recommended to follow-up with gastroenterology in office.
Patient also had associated hyponatremia which was felt to be euvolemic related to ADH excess with bleed and cirrhosis. Improved without any further intervention. Patient also on SSRI/Prozac which needs to be discontinued if patient continues to
have recurrent hyponatremia without any other clear causative factor.
Patient laboratory evaluation showing thrombocytopenia/coagulopathy/elevated total bilirubin and transaminitis. Abdominal imaging showing cirrhotic morphology of liver. Hepatitis panel was checked and negative. This is presumed to be alcoholic
cirrhosis at this point.
Important imaging findings :
EGD 08/17
- Grade I esophageal varices.
- Erosive gastropathy with no stigmata of recent bleeding.
- Duodenal ulcers with pigmented material. Injected.
- No specimens collected.
Procedure findings :
None
Discharge Plan
-
Patient Disposition: Home (Routine Discharge)
Discharge Diagnosis/Procedures: Peptic ulcer disease, GI bleed
Condition: Fair
Diet: Regular
Activity: As tolerated
Driving Restrictions: No driving for 24 hours
Bathing Restrictions: OK to Shower
Referrals:
Manny Delgado MD [Active] - (Follow up with Dr. Delgado and [facility] or PA follow up for duodenal ulcers and cirrhosis of liver )
Skylar Helton DO [Family Provider] - in one week
Prescriptions:
New
oxycodone 5 mg Tablet
5 mg PO Q4HPRN PRN (Reason: mod sev pain) Qty: 15 0RF
pantoprazole 40 mg tablet,delayed release (DR/EC)
40 mg PO BID Qty: 60 0RF
Continued
fluoxetine [Prozac] 40 mg Capsule
40 mg PO DAILY
rosuvastatin [Crestor] 10 mg Tablet
10 mg PO DAILY
omega 3-lze-okl-fish oil [Fish Oil] 1,000 mg (120 mg-180 mg) Capsule
1 cap PO DAILY
Jardiance 25 mg Tablet
25 mg PO DAILY
dorzolamide-timolol 22.3-6.8 mg/mL drops
1 drp BOTH EYES BID
Discontinued
oxycodone-acetaminophen [Percocet] 5-325 mg tablet
1 - 2 tab PO Q6HPRN PRN (Reason: severe pain)
Discharge Orders:
Discharge Patient (As Directed); Ordered 08/21/23
Ordered By: Alexander Townsend
Discharge Date and Time
Discharge Date/Time: 08/21/23 14:46
Print Language: KAZAKH
== END 2023-08-21 14:46 | disposition home or self-care (01) | DRG 377 ==
LOC: 4 WEST ACU 16:12
PROVIDERS: Hospitalist; Nurse Practitioner Adult Health; Nurse Practitioner Primary Care; ADMITTING PHYSICIAN Internal Medicine; ATTENDING PHYSICIAN Hospitalist; CONSULT PHYSICIAN Internal Medicine; EMERGENCY PHYSICIAN Emergency Medicine; FAMILY PHYSICIAN Family Medicine; OTHER PHYSICIAN Internal Medicine Critical Care Medicine
PROC: 30233N1 Transfusion of Nonautologous Red Blood Cells into Peripheral Vein, Percutaneous Approach (ICD-10-PCS; 2023-08-17)
PROC: 3E0G8GC Introduction of Other Therapeutic Substance into Upper GI, Via Natural or Artificial Opening Endoscopic (ICD-10-PCS; 2023-08-18)
DX: K26.0 Acute duodenal ulcer with hemorrhage (principal); I85.11 Secondary esophageal varices with bleeding; R57.0 Cardiogenic shock; S22.42XA Multiple fractures of ribs, left side, initial encounter for closed fracture; D62 Acute posthemorrhagic anemia; E87.1 Hypo-osmolality and hyponatremia; K57.32 Diverticulitis of large intestine without perforation or abscess without bleeding; E87.20 Acidosis, unspecified; D68.9 Coagulation defect, unspecified; K26.4 Chronic or unspecified duodenal ulcer with hemorrhage; F17.200 Nicotine dependence, unspecified, uncomplicated; E86.1 Hypovolemia; I10 Essential (primary) hypertension; K80.20 Calculus of gallbladder without cholecystitis without obstruction; K70.30 Alcoholic cirrhosis of liver without ascites; E11.9 Type 2 diabetes mellitus without complications; K31.89 Other diseases of stomach and duodenum; E78.00 Pure hypercholesterolemia, unspecified; D69.6 Thrombocytopenia, unspecified
CPT/HCPCS: 36430; 74174; 80048; 80053; 81003; 82105; 82248; 82728; 82962; 82977; 83036; 83735; 83935; 84100; 84300; 84466; 85014; 85018; 85025; 85027; 85384; 85610; 85730; 86704; 86803; 86850; 86900; 86901; 86920; 87040; 87340; 87449; 87899; 93005; 93306; 96365; 96366; 99291; 99406; P9016; Q9967

== ENCOUNTER → 2023-09-18 09:33 | Outpatient (REF) | payer BC, SELFPAY ==
[2023-09-18 12:03] LABS: % Basophils 0.8 % (0-2); % Eosinophils 1.3 % (0-6); % Immature Granulocytes 0.5 % (0-0.5); % Lymphocytes 24.4 % (20.5-51.1); Absolute Eosinophils 0.1 10^3/uL (0-0.7); Absolute Monocytes 0.4 10^3/uL (0.1-0.6); Absolute Neutrophils 2.5 10^3/uL (1.4-6.5); Hematocrit 34.3 % (39.0-52.0); Hemoglobin 11.5 g/dL (13.0-18.0); Mean Corp Hgb Conc. 33.5 g/dL (33.0-37.0); Mean Corpuscular Volume 95.5 fL (80.0-94.0); Nucleated Red Blood Cells % 0 % (-); Red Blood Cell Count 3.59 10^6/uL (4.70-6.10); Red Cell Dist. Width 15.6 % (11.5-14.5); White Blood Cell Count 3.9 10^3/uL (4.8-10.8)
[2023-09-18 13:10] LABS: ALT (SGPT) 13 U/L (0-50); AST (SGOT) 30 U/L (17-59); Albumin 3.9 g/dl (3.5-5.0); Alkaline Phosphatase 113 U/L (38-126); Blood Urea Nitrogen 7 mg/dl (9-20); Calcium 9.5 mg/dl (8.4-10.2); Carbon Dioxide 27 mmol/L (22-30); Chloride 102 mmol/L (98-107); Glucose 136 mg/dl (70-99); HDL Cholesterol 51 mg/dl; LDL Cholesterol, Calculated 89 mg/dl; Potassium 4.1 mmol/L (3.5-5.1); Sodium 138 mmol/L (135-145); Total Bilirubin 1.3 mg/dl (0.2-1.3); Total Cholesterol 156 mg/dl (50-199); Total Protein 7.7 g/dl (6.3-8.2); Triglyceride 84 mg/dl (10-149); Very Low Density Lipoprotein 16 mg/dl (0-30); eGFR > 60.00
[2023-09-18 13:55] LABS: Mean Platelet Volume 9.4 fL (7.4-10.4); Platelet Count 78 10^3/uL (130-400)
== END ==
LOC: HWLAB 09:33
PROVIDERS: ATTENDING PHYSICIAN Nurse Practitioner Family
DX: K92.2 Gastrointestinal hemorrhage, unspecified (principal); K74.60 Unspecified cirrhosis of liver
CPT/HCPCS: 36415; 80053; 80061; 85025

== ENCOUNTER → 2023-11-07 06:29 | Day surgery (SDC) | payer BC, SELFPAY ==
[2023-11-07 08:04] LABS: Glucose - Point of Care 179 mg/dl (70-99)
== END ==
LOC: GI 06:29
PROVIDERS: ATTENDING PHYSICIAN Internal Medicine Gastroenterology
DX: I85.00 Esophageal varices without bleeding (principal); K31.89 Other diseases of stomach and duodenum; Z87.11 Personal history of peptic ulcer disease
CPT/HCPCS: 43235; 88305; 82962; 88342

== ENCOUNTER → 2024-05-26 12:24 | Outpatient (REF) | payer BC, SELFPAY | LOC: MRI 3T 12:24 | PROVIDERS: ATTENDING PHYSICIAN Internal Medicine Transplant Hepatology; FAMILY PHYSICIAN Nurse Practitioner Family | DX: K70.30 Alcoholic cirrhosis of liver without ascites (principal) | CPT/HCPCS: 74183; A9581 ==

== ENCOUNTER → 2024-06-19 12:33 | Outpatient (REF) | payer BC, SELFPAY ==
[2024-06-19 16:34] LABS: Hematocrit 37.2 % (39.0-52.0); Hemoglobin 13.8 g/dL (13.0-18.0); Mean Corp Hgb Conc. 37.1 g/dL (33.0-37.0); Mean Corpuscular Hgb 34.9 pg (27.0-31.0); Mean Corpuscular Volume 94.2 fL (80.0-94.0); Red Blood Cell Count 3.95 10^6/uL (4.70-6.10); Red Cell Dist. Width 14.4 % (11.5-14.5); White Blood Cell Count 5.5 10^3/uL (4.8-10.8)
[2024-06-19 16:35] LABS: PT 16.4 Sec (11.4-14.6)
[2024-06-19 16:40] LABS: ALT (SGPT) 19 U/L (0-50); AST (SGOT) 31 U/L (17-59); Albumin 4.5 g/dl (3.5-5.0); Alkaline Phosphatase 94 U/L (38-126); Blood Urea Nitrogen 11 mg/dl (9-20); Carbon Dioxide 27 mmol/L (22-30); Chloride 101 mmol/L (98-107); Glucose 135 mg/dl (70-99); HDL Cholesterol 63 mg/dl; LDL Cholesterol, Calculated 80 mg/dl; Sodium 138 mmol/L (135-145); Total Bilirubin 3.6 mg/dl (0.2-1.3); Total Cholesterol 155 mg/dl (50-199); Total Protein 7.9 g/dl (6.3-8.2); Triglyceride 64 mg/dl (10-149); Very Low Density Lipoprotein 12 mg/dl (0-30); eGFR > 60.00
[2024-06-19 16:57] LABS: % Basophils 0.5 % (0-2); % Eosinophils 0.5 % (0-6); % Immature Granulocytes 0.4 % (0-0.5); % Lymphocytes 16.1 % (20.5-51.1); % Monocytes 8.6 % (1.7-9.3); % Neutrophils 73.9 % (42.2-75.2); Absolute Lymphocytes 0.9 10^3/uL (1.2-3.4); Absolute Monocytes 0.5 10^3/uL (0.1-0.6); Absolute Neutrophils 4.1 10^3/uL (1.4-6.5); Mean Platelet Volume 10.5 fL (7.4-10.4); Nucleated Red Blood Cells % 0 % (-); Platelet Count 64 10^3/uL (130-400)
[2024-06-19 17:01] LABS: PSA, Total - Screen 0.86 ng/ml (0.0-4.0)
[2024-06-19 17:02] LABS: Microalbumin, Random Urine 1.3 mg/dl (0.6-1.7); Microalbumin/creatinine Ratio 7.7 mg/g
[2024-06-19 17:43] LABS: TSH Reflex To Free T4 1.06 uIU/ml (0.47-4.68)
[2024-06-20 12:31] LABS: Glycohemoglobin (HgbA1c) 4.6 % (4.0-5.6)
== END ==
LOC: HWLAB 12:33
PROVIDERS: ATTENDING PHYSICIAN Nurse Practitioner Family
DX: K74.60 Unspecified cirrhosis of liver (principal); D69.6 Thrombocytopenia, unspecified; I10 Essential (primary) hypertension; E78.5 Hyperlipidemia, unspecified; Z72.0 Tobacco use; E11.9 Type 2 diabetes mellitus without complications; K21.9 Gastro-esophageal reflux disease without esophagitis; F33.42 Major depressive disorder, recurrent, in full remission; Z12.5 Encounter for screening for malignant neoplasm of prostate
CPT/HCPCS: 36415; 80053; 80061; 82043; 82570; 83036; 84443; 85025; 85610; G0103

== ENCOUNTER 2024-06-24 11:03 | Emergency (ER) | payer BC, SELFPAY ==
[2024-06-24 11:05] VITALS: BP 189/104
--- NOTE | 2024-06-24 11:57 | ED.GENMED ---
History of Present Illness
General
Chief Complaint: Alcohol Problem
Source: patient
Exam Limitations: none
Time Seen by Provider: 06/24/24 11:23
Nursing documentation reviewed up to this point in time: agreed with
History of Present Illness
History of Present Illness:
58-year-old male referred to the ER by his PCP due to alcoholism patient has been to rehab previously, in [place] a few years ago apparently relapsed, binge drinking, told his PCP at the visit today referred to the ER for evaluation last drink
yesterday, his no shakes no seizures no anxiety, appears to want to go to an outpatient setting to get some help not interested in inpatient, never had a DUI he is he is employed
Past History
Past History
ED Past Medical History: HTN, Hypercholesterolemia, NIDDM and Other (Diverticulitis)
ED Past Surgical History: Appendectomy
Social History
Tobacco: Non-smoker
Alcohol: Binge drinker
Drug: None
Personal:
Living: with family
Employment: Employed
Review of Systems
Review of Systems
All Other Systems: Not applicable
Psychiatric: Denies depression, anxiety, suicidal or hallucinations
Phy Exam
Physical Exam
Physical Exam:
Physical Exam
General: no apparent distress, not acutely ill
Neck: No jaundice
Heart: s1/s2 regular rate and rhythm, no murmur. equal radial pulses.
Lungs: no acute respiratory distress.
Abdomen: Not tender
Neuro: alert and oriented. no focal neurological deficits no tremor no asterixis
Skin: no rash
Psychiatric: well kept. interactive and cooperative does not appear anxious
Extremities: no edema.
Scores
Withdrawal Assessment of Alcohol
Withdrawal Assessment Completed?: Yes
Nausea and Vomiting: No nausea and no vomiting
Tactile Disturbances: None
Tremor: No tremor
Auditory Disturbances: Not present
Paroxysmal Sweats: No sweat visible
Visual Disturbances: Not present
Anxiety: No anxiety, at ease
Headache, Fullness in Head: Not present
Agitation: Normal activity
Orientation and clouding of sensorium: Oriented and can do serial additions
Total CIWA Score: 0
Alcohol Withdrawal Medication Recommendation: Equal to MSAS Score 0-4. Monitor & re-assess q2hrs, NO MEDICATION NEEDED
Course
Orders/Labs/Results
Orders:
Orders
06/24/24 11:45
Warm Handoff Consult ONCE
Patient agreeable to Warm Hand off: Yes
Call made to [phone]: Spoke with CRS
Vital Signs
Initial and Last Documented VS:
Initial Vital Signs
Temp Pulse Resp BP Pulse Ox
97.7 F 65 18 189/104 100
06/24/24 11:05 06/24/24 11:05 06/24/24 11:05 06/24/24 11:05 06/24/24 11:05
Last Documented Vital Signs
Temp Pulse Resp BP Pulse Ox
97.7 F 65 18 189/104 100
06/24/24 11:05 06/24/24 11:05 06/24/24 11:05 06/24/24 11:05 06/24/24 11:05
MDM/Problems Addressed
Differential Diagnosis Includes:
Alcoholism with binge drinking no signs of alcohol withdrawal delirium tremens
MDM/Problems Addressed:
Alcoholism
Chronic conditions affecting care:
Alcohol
Acute Exacerbation and/or Progression of Chronic Illness:
Alcohol
*Critical Care Note
Total Time (30-74mins, 75-104mins- exclusive of procedures): Not Applicable
Update Note
Update Note:
Update patient vital stable clear mental status be carried warm handoff's been consulted
ED Attending Note
-
Portions of this chart may have been created with voice recognition software.� Occasional wrong word or��sound alike� substitutions may have occurred due to the inherent limitations of voice recognition software.
Discharge Plan
Departure
Patient Disposition: Home (Routine Discharge)
Date of Disposition: 06/24/24
Time of Disposition: 12:09
Patient with high blood pressure during this ER visit?: No
Condition: Good
Discharge Problem:
Alcoholism
Instructions: Alcohol Use Disorder (DC)
Prescriptions:
No Action
fluoxetine [Prozac] 40 mg Capsule
40 mg PO DAILY
rosuvastatin [Crestor] 10 mg Tablet
10 mg PO DAILY
omega 0-wju-hjv-fish oil [Fish Oil] 1,000 mg (120 mg-180 mg) Capsule
1 cap PO DAILY
Jardiance 25 mg Tablet
25 mg PO DAILY
dorzolamide-timolol 22.3-6.8 mg/mL drops
1 drp BOTH EYES BID
oxycodone 5 mg Tablet
5 mg PO Q4HPRN PRN (Reason: mod sev pain) Qty: 15 0RF
pantoprazole 40 mg tablet,delayed release (DR/EC)
40 mg PO BID Qty: 60 0RF
Referrals:
Ed Dangelo CRNP [Family Provider] -
Activity Restrictions/Additional Instructions:
Follow-up with the resources provided to you by [facility]
Interventions
Interventions:
*Risk Screen - Suicide Last Done: 06/24/24 11:08
*General Assessment Last Done: 06/24/24 11:35
*Neglect/Abuse Screening Last Done: 06/24/24 11:08
*ED COVID-19 Vaccine History Last Done: 06/24/24 11:35
ED- Neurological Assessment Last Done: 06/24/24 11:35
ED-Psychological Assessment Last Done: 06/24/24 11:35
Discharge Date and Time
Print Language: MOSOTHO
[2024-06-24 12:17] VITALS: BP 177/87
== END 2024-06-24 12:22 | disposition home or self-care (01) ==
LOC: EMR 11:03
PROVIDERS: EMERGENCY PHYSICIAN Emergency Medicine; FAMILY PHYSICIAN Nurse Practitioner Family
DX: F10.20 Alcohol dependence, uncomplicated (principal); I10 Essential (primary) hypertension; E78.00 Pure hypercholesterolemia, unspecified; E11.9 Type 2 diabetes mellitus without complications; Z90.49 Acquired absence of other specified parts of digestive tract
CPT/HCPCS: 99282

== ENCOUNTER → 2024-06-29 12:57 | Outpatient (REF) | payer BC, SELFPAY ==
[2024-06-29 15:45] LABS: INR 1.21; PT 15.6 Sec (11.4-14.6)
[2024-06-29 15:51] LABS: % Basophils 0.6 % (0-2); % Immature Granulocytes 0.4 % (0-0.5); % Lymphocytes 17.6 % (20.5-51.1); % Monocytes 8.9 % (1.7-9.3); % Neutrophils 71.5 % (42.2-75.2); ALT (SGPT) 21 U/L (0-50); AST (SGOT) 32 U/L (17-59); Absolute Eosinophils 0.1 10^3/uL (0-0.7); Absolute Lymphocytes 0.9 10^3/uL (1.2-3.4); Absolute Monocytes 0.5 10^3/uL (0.1-0.6); Absolute Neutrophils 3.7 10^3/uL (1.4-6.5); Albumin 4.5 g/dl (3.5-5.0); Alkaline Phosphatase 93 U/L (38-126); Blood Urea Nitrogen 16 mg/dl (9-20); Calcium 9.2 mg/dl (8.4-10.2); Carbon Dioxide 27 mmol/L (22-30); Chloride 99 mmol/L (98-107); Glucose 120 mg/dl (70-99); Hematocrit 36.4 % (39.0-52.0); Hemoglobin 13.1 g/dL (13.0-18.0); Mean Corpuscular Hgb 34.4 pg (27.0-31.0); Mean Corpuscular Volume 95.5 fL (80.0-94.0); Mean Platelet Volume 10.1 fL (7.4-10.4); Nucleated Red Blood Cells % 0 % (-); Platelet Count 64 10^3/uL (130-400); Potassium 4.3 mmol/L (3.5-5.1); Red Blood Cell Count 3.81 10^6/uL (4.70-6.10); Red Cell Dist. Width 14.6 % (11.5-14.5); Sodium 136 mmol/L (135-145); Total Bilirubin 1.9 mg/dl (0.2-1.3); Total Protein 7.4 g/dl (6.3-8.2); White Blood Cell Count 5.2 10^3/uL (4.8-10.8); eGFR > 60.00
[2024-07-01 09:31] LABS: AFP Male/Tumor Marker 4 ng/mL (0-9)
== END ==
LOC: HWRCS 12:57
PROVIDERS: ATTENDING PHYSICIAN Nurse Practitioner Family; OTHER PHYSICIAN Internal Medicine Transplant Hepatology; REFERRING PHYSICIAN Internal Medicine Hematology & Oncology
DX: R94.31 Abnormal electrocardiogram [ECG] [EKG] (principal); D69.6 Thrombocytopenia, unspecified; K70.30 Alcoholic cirrhosis of liver without ascites
CPT/HCPCS: 36415; 80053; 82105; 85025; 85610; 93306

== ENCOUNTER → 2024-07-24 09:04 | Outpatient (REF) | payer BC, SELFPAY ==
[2024-07-24 11:50] LABS: % Eosinophils 1.6 % (0-6); % Immature Granulocytes 0.2 % (0-0.5); % Lymphocytes 20.1 % (20.5-51.1); % Monocytes 7.7 % (1.7-9.3); % Neutrophils 69.4 % (42.2-75.2); Absolute Basophils 0.1 10^3/uL (0-0.2); Absolute Eosinophils 0.1 10^3/uL (0-0.7); Absolute Monocytes 0.4 10^3/uL (0.1-0.6); Absolute Neutrophils 3.4 10^3/uL (1.4-6.5); Hematocrit 36.2 % (39.0-52.0); Hemoglobin 13.1 g/dL (13.0-18.0); Mean Corp Hgb Conc. 36.2 g/dL (33.0-37.0); Mean Platelet Volume 10.1 fL (7.4-10.4); Nucleated Red Blood Cells % 0 % (-); Platelet Count 64 10^3/uL (130-400); Red Blood Cell Count 3.85 10^6/uL (4.70-6.10); Red Cell Dist. Width 13.4 % (11.5-14.5); White Blood Cell Count 4.9 10^3/uL (4.8-10.8)
== END ==
LOC: HWLAB 09:04
PROVIDERS: ATTENDING PHYSICIAN Nurse Practitioner Family
DX: D69.6 Thrombocytopenia, unspecified (principal)
CPT/HCPCS: 36415; 85025